=== PATIENT | female | born 1940 | race Caucasian/White ===

== ENCOUNTER 2018-04-24 23:22 | Emergency (ER) | payer OTHER ==
[2018-04-24 23:54] VITALS: BMI 25.4
--- NOTE | 2018-04-25 02:56 | PDOC ---
Attending Attestation - Resident Resident Name: Jose Cook - ED Attending Attestation I have performed the following: I have examined & evaluated the patient, The case was reviewed & discussed with the resident, I agree w/resident's findings & plan - HPI HPI: 04/25/18 06:48 78-year-old female sent from her assisted living facility with multiple episodes of diarrhea and lower abdominal cramping. There is no history of fever. - Physicial Exam PE: 04/25/18 06:48 Agree with resident's exam - Medical Decision Making 04/25/18 06:49 78-year-old female with multiple episodes of diarrhea Plan for CT scan of the abdomen and pelvis, changed to without contrast due to elevated creatinine IV fluids and reevaluation pending results Case to be signed out to the shift
--- NOTE | 2018-04-25 03:38 | PDOC ---
History of Present Illness - General Chief Complaint: Diarrhea Stated Complaint: DIARRHEA Time Seen by Provider: 04/25/18 02:55 History Source: Patient Exam Limitations: No Limitations - History of Present Illness Initial Comments: 04/25/18 06:42 78 yo F with a hx of schizophrenia, CAD, HLD, and GERD presents to the emergency department with 1 week of multiple . The patient currently lives at [facility] since 1992. Per the patient, she has had watery stool without hematochezia or melena. Per the patient, she has abdominal pain in the lower midline suprapubic region that is cramping in nature. She denies the following: fever, chills, SOB, chest pain, nausea, vomiting, visual changes, dysuria, hematuria, and leg pain/swelling. No recent use of antibiotics and denies recent sick contacts. Shx: None Allergies: NKDA Social: Endorses tobacco use. Denies alcohol and substance abuse Past History - Past Medical History Allergies/Adverse Reactions: Allergies Allergy/AdvReac Type Severity Reaction Status Date / Time No Known Allergies Allergy Verified 04/24/18 23:45 Home Medications: Ambulatory Orders Alendronate Sodium [Binosto] 70 mg PO WEEKLY 04/21/15 Aspirin [ASA -] 81 mg PO DAILY 04/21/15 Calcium 500 mg PO TID 04/21/15 Clopidogrel Bisulfate [Clopidogrel] 75 mg PO HS 04/21/15 Mirtazapine [Remeron -] 30 mg PO HS 04/21/15 Multivit with Calcium,Iron,Min [Tab A Ezra] 1 each PO DAILY 04/21/15 Potassium Citrate/Citric Acid [Pot Citrate-Citric Acid Packet] 1 each PO BID 06/01 Pravastatin Sodium 10 mg PO DAILY 04/21/15 Risperidone [Risperdal] 4 mg PO HS 04/21/15 Topiramate [Topamax] 400 mg PO HS 04/21/15 Ziprasidone [Geodon -] 60 mg PO BID 04/21/15 Zolpidem Tartrate 10 mg PO HS 04/21/15 traZODone HCL [Desyrel -] 50 mg PO HS 04/21/15 Acetaminophen [Mapap] 325 mg PO TID PRN #0 04/27/15 Cardiac Disorders: Yes (ASHD) GI Disorders: Yes (gerd) Hypercholesterolemia: Yes Psychiatric Problems: Yes (SCHIZOPHRENIA) - Suicide/Smoking/Psychosocial Hx Smoking History: Never smoked Have you smoked in the past 12 months: No Number of Cigarettes Smoked Daily: 0 If you are a former smoker, when did you quit?: 15 YEARS AGO Information on smoking cessation initiated: No Hx Alcohol Use: No Drug/Substance Use Hx: No Substance Use Type: None Hx Substance Use Treatment: No Review of Systems - Review of Systems Able to Perform ROS?: Yes Is the patient limited Macedonian proficient: No Constitutional: No: Chills, Diaphoresis, Fever, Weakness HEENTM: No: Blurred Vision, Recent change in vision, Ear Pain, Nose Pain, Throat Pain, Mouth Pain Respiratory: No: Cough, Shortness of Breath, SOB with Exertion, Hemoptysis Cardiac (ROS): No: Chest Pain, Lightheadedness, Palpitations, Syncope, Chest Tightness ABD/GI: Yes: Diarrhea. No: Constipated, Nausea, Rectal Bleeding, Vomiting, Tarry Stools : No: Burning, Dysuria, Frequency, Hematuria, Urgency Musculoskeletal: No: Back Pain, Joint Pain, Neck Pain Integumentary: No: Bruising, Erythema, Rash, Sweating Neurological: No: Headache, Numbness, Tingling, Tremors, Ataxia, Dizziness Psychiatric: No: Change in Appetite Endocrine: No: Unexplained Weight Gain Hematologic/Lymphatic: No: Anemia *Physical Exam - Vital Signs Last Vital Signs Temp Pulse Resp BP Pulse Ox 97.9 F 82 18 114/71 97 04/24/18 23:45 04/24/18 23:45 04/24/18 23:45 04/24/18 23:45 04/24/18 23:45 - Physical Exam General Appearance: Yes: Nourished, Appropriately Dressed. No: Apparent Distress, Intoxicated HEENT: positive: EOMI, ZHANE, Normal Voice, Symmetrical, Pharynx Normal, Hearing Grossly Normal. negative: Pale Conjunctivae, Scleral Icterus (R), Scleral Icterus (L), Muffled/Hoarse voice, Pharyngeal Erythema, Tonsillar Exudate, Tonsillar Erythema, Nasal Congestion, Rhinorrhea, Sinus Tenderness, Excessive drooling Neck: positive: Trachea midline, Supple. negative: Tender, Lymphadenopathy (R) , Lymphadenopathy (L), Tender lateral, Tender midline Respiratory/Chest: positive: Lungs Clear, Normal Breath Sounds. negative: Chest Tender, Respiratory Distress, Accessory Muscle Use, Crackles, Rales, Rhonchi, Stridor, Wheezing Cardiovascular: positive: Regular Rhythm, Regular Rate, S1, S2. negative: Systolic Murmur Gastrointestinal/Abdominal: positive: Normal Bowel Sounds, Tender (suprapubic region), Flat, Soft. negative: Rebound, Tenderness, Hernia Lymphatic: negative: Adenopathy Musculoskeletal: positive: Normal Inspection. negative: CVA Tenderness, Vertebral Tenderness Extremity: positive: Normal Capillary Refill, Normal Inspection, Normal Range of Motion. negative: Tender Integumentary: positive: Normal Color, Dry, Warm Neurologic: positive: sap basis administrator II-XII NML intact, Fully Oriented, Alert, Normal Mood/ Affect, Normal Response, Motor Strength 5/5. negative: EOM Palsy, Facial Droop , Sensory Deficit Moderate Sedation - Procedure Monitoring Vital Signs: Procedure Monitoring Vital Signs Temperature 97.9 F 04/24/18 23:45 Pulse Rate 82 04/24/18 23:45 Respiratory Rate 18 04/24/18 23:45 Blood Pressure 114/71 04/24/18 23:45 O2 Sat by Pulse Oximetry (%) 97 04/24/18 23:45 ED Treatment Course - LABORATORY CBC & Chemistry Diagram: 04/25/18 04:53 04/25/18 04:53 Medical Decision Making - Medical Decision Making 78 yo F with a hx of schizophrenia, CAD, HLD, and GERD presents to the emergency department with 1 week of diarrhea. Initial vitals: Initial Vital Signs Temp Pulse Resp BP Pulse Ox 97.9 F 82 18 114/71 97 04/24/18 23:45 04/24/18 23:45 04/24/18 23:45 04/24/18 23:45 04/24/18 23:45 Work up: ddx: viral gastroenteritis vs colitis vs diverticulosis vs diverticulitis Laboratory Tests 04/25/18 04/25/18 04:53 04:53 WBC 6.4 RBC 3.27 L Hgb 10.2 L Hct 29.9 L MCV 91.4 MCH 31.1 MCHC 34.0 RDW 14.6 Plt Count 157 MPV 11.5 H Absolute Neuts (auto) 2.8 Neutrophils % 42.8 D Lymphocytes % 36.2 D Monocytes % 10.2 Eosinophils % 10.0 H D Basophils % 0.8 Nucleated RBC % 0 Sodium 143 Potassium 4.0 Chloride 113 H Carbon Dioxide 23 Anion Gap 7 L BUN 36 H Creatinine 1.6 H Creat Clearance w eGFR 31.26 Random Glucose 88 Calcium 8.6 Total Bilirubin 0.3 AST 11 L ALT 12 L Alkaline Phosphatase 55 Total Protein 6.0 L Albumin 3.0 L Patient's BUN and creatinine is elevated likely secondary to dehydration secondary to profuse diarrhea. Patient will get a CT abdomen and pelvis without contrast due to rise in creatinine and BUN. patient received 1 L of NS. Did not want anything for pain relief. Patient was signed out to Dr. Puentes *DC/Admit/Observation/Transfer - Referrals Referrals: Elisabet Jones [Primary Care Provider] - - Patient Instructions - Post Discharge Activity
[2018-04-25 05:10] LABS: BASO % 0.8 % (0-2.0); HEMATOCRIT 29.9 % (32.4-45.2); HEMOGLOBIN 10.2 GM/dL (10.7-15.3); LYMPH % 36.2 % (8-40); MCH 31.1 pg (25.7-33.7); MEAN CELL VOLUME 91.4 fl (80-96); MEAN PLT VOLUME 11.5 fl (7.5-11.1); MONO % 10.2 % (3.8-10.2); NEUT % 42.8 % (42.8-82.8); PLATELET COUNT 157 K/MM3 (134-434); RBC 3.27 M/mm3 (3.60-5.2); RDW 14.6 % (11.6-15.6); WHITE BLOOD COUNT 6.4 K/mm3 (4.0-10.0)
[2018-04-25 06:19] LABS: ALK PHOS 55 U/L (45-117); ANION GAP 7 MMOL/L (8-16); BILIRUBIN,TOTAL 0.3 mg/dL (0.2-1); BLOOD UREA NITROGEN 36 mg/dL (7-18); CALCIUM 8.6 mg/dL (8.5-10.1); CHLORIDE 113 mmol/L (98-107); CO2 23 mmol/L (21-32); CREATININE 1.6 mg/dL (0.55-1.3); GLUCOSE,RANDOM 88 mg/dL (74-106); SGOT/AST 11 U/L (15-37); SGPT/ALT 12 U/L (13-61); SODIUM 143 mmol/L (136-145)
[2018-04-25] MEDS ORDERED: SODIUM CHLORIDE 1,000 ML IV STA (06:23)
--- NOTE | 2018-04-25 08:57 | PDOC ---
*Physical Exam - Vital Signs Last Vital Signs Temp Pulse Resp BP Pulse Ox 97.9 F 76 15 122/87 98 04/24/18 23:45 04/25/18 06:40 04/25/18 06:40 04/25/18 06:40 04/25/18 06:40 ED Treatment Course - LABORATORY CBC & Chemistry Diagram: 04/25/18 04:53 04/25/18 04:53 - ADDITIONAL ORDERS Additional order review: Laboratory Results 04/25/18 04/25/18 08:15 04:53 Sodium 143 Potassium 4.0 Chloride 113 H Carbon Dioxide 23 Anion Gap 7 L BUN 36 H Creatinine 1.6 H Creat Clearance w eGFR 31.26 Random Glucose 88 Lactic Acid 0.5 Calcium 8.6 Total Bilirubin 0.3 AST 11 L ALT 12 L Alkaline Phosphatase 55 Total Protein 6.0 L Albumin 3.0 L 04/25/18 04:53 RBC 3.27 L MCV 91.4 MCHC 34.0 RDW 14.6 MPV 11.5 H Neutrophils % 42.8 D Lymphocytes % 36.2 D Monocytes % 10.2 Eosinophils % 10.0 H D Basophils % 0.8 - Medications Given in the ED: ED Medications Discontinued Medications Generic Name Dose Route Start Last Admin Trade Name Freq PRN Reason Stop Dose Admin Sodium Chloride 1,000 mls @ 1,000 mls/hr 04/25/18 06:23 04/25/18 06:45 Normal Saline - IV 04/25/18 07:22 1,000 mls/hr ASDIR STA Administration Medical Decision Making - Medical Decision Making 04/25/18 08:[address] Cook. Ms. Garcia is a 78 yo female w/ pmh of scizophrenia, CAD, HLD, GERD who presents for evaluation of 1 week of diarrhea ( watery stool w/out hematochezia or melena). Patient is a [employer] patient. Currently pending CT abdomen/pelvis for further evaluation. 04/25/18 09:37 CT significant for anterior pericardial effusion, hepatic cyst and cholelithiasis, bilateral renal cysts, and mild sigmoid diverticulosis. No concern for acute process at this time. 04/25/18 10:31 Discussed patient with nursing munitions handler supervisor Garrett Maurer - explained patient requires PO hydration only at this time and went over negative CT findings. Patient ok for return at this time. Laboratory Results - last 24 hr 04/25/18 04/25/18 04/25/18 04:53 04:53 08:15 WBC 6.4 RBC 3.27 L Hgb 10.2 L Hct 29.9 L MCV 91.4 MCH 31.1 MCHC 34.0 RDW 14.6 Plt Count 157 MPV 11.5 H Absolute Neuts (auto) 2.8 Neutrophils % 42.8 D Lymphocytes % 36.2 D Monocytes % 10.2 Eosinophils % 10.0 H D Basophils % 0.8 Nucleated RBC % 0 Sodium 143 Potassium 4.0 Chloride 113 H Carbon Dioxide 23 Anion Gap 7 L BUN 36 H Creatinine 1.6 H Creat Clearance w eGFR 31.26 Random Glucose 88 Lactic Acid 0.5 Calcium 8.6 Total Bilirubin 0.3 AST 11 L ALT 12 L Alkaline Phosphatase 55 Total Protein 6.0 L Albumin 3.0 L *DC/Admit/Observation/Transfer Diagnosis at time of Disposition: Dehydration Diarrhea Qualifiers: Diarrhea type: unspecified type Qualified Code(s): R19.7 - Diarrhea, unspecified - Discharge Dispostion Disposition: HOME - Referrals Referrals: Elisabet Jones [Primary Care Provider] - - Patient Instructions Printed Discharge Instructions: DI for Diarrhea and Traveler's Diarrhea -- Adult Additional Instructions: Sabi was evaluated today in the ER for her diarrhea. We performed laboratory evaluation as well as CT scan with no concerning findings. She was mildly dehydrated and we rehydrated her with IV fluids. Continue to encourage PO intake for further hydration. Follow-up with primary care provider in 2-3 days for repeat evaluation and laboratory evaluation. Return to ER if any change in mental status, fever, chills, or other concerning symptoms. - Post Discharge Activity
[2018-04-25 10:15] VITALS: TEMP 98.1
[2018-04-25 13:40] VITALS: BP 97/60; PULSE 64
== END 2018-04-25 13:40 | disposition home or self-care (01) ==
LOC: JER 23:22
PROC: 3E0337Z Introduction of Electrolytic and Water Balance Substance into Peripheral Vein, Percutaneous Approach (ICD-10-PCS; principal; 2018-04-24)
DX: E86.0 Dehydration (principal); I25.10 Atherosclerotic heart disease of native coronary artery without angina pectoris; E78.5 Hyperlipidemia, unspecified; K21.9 Gastro-esophageal reflux disease without esophagitis; F20.9 Schizophrenia, unspecified; R94.4 Abnormal results of kidney function studies
CPT/HCPCS: 36415; 74176-TC; 80053; 83605; 85025; 99282-25; J7030

== ENCOUNTER 2018-06-08 13:43 | Emergency (ER) | payer OTHER ==
[2018-06-08 13:48] VITALS: BP 101/58; PULSE 73; TEMP 98.6; BMI 28.3
--- NOTE | 2018-06-08 14:20 | PDOC ---
History of Present Illness - General Chief Complaint: Edema Stated Complaint: RT EYE INFECTION Time Seen by Provider: 06/08/18 14:16 - History of Present Illness Initial Comments: 06/08/18 14:19 78-year-old female presents for evaluation of left eye swelling. She states she woke up with her left thigh swollen this morning there is no discharge no pain no changes in vision completely asymptomatic. She states her eye does not feel swollen at this time. Past History - Past Medical History Allergies/Adverse Reactions: Allergies Allergy/AdvReac Type Severity Reaction Status Date / Time No Known Allergies Allergy Verified 06/08/18 13:46 Home Medications: Ambulatory Orders Alendronate Sodium [Binosto] 70 mg PO WEEKLY 04/21/15 Aspirin [ASA -] 81 mg PO DAILY 04/21/15 Calcium 500 mg PO TID 04/21/15 Clopidogrel Bisulfate [Clopidogrel] 75 mg PO HS 04/21/15 Mirtazapine [Remeron -] 30 mg PO HS 04/21/15 Multivit with Calcium,Iron,Min [Tab A Ezra] 1 each PO DAILY 04/21/15 Potassium Citrate/Citric Acid [Pot Citrate-Citric Acid Packet] 1 each PO BID 06/01 Pravastatin Sodium 10 mg PO DAILY 04/21/15 Risperidone [Risperdal] 4 mg PO HS 04/21/15 Topiramate [Topamax] 400 mg PO HS 04/21/15 Ziprasidone [Geodon -] 60 mg PO BID 04/21/15 Zolpidem Tartrate 10 mg PO HS 04/21/15 traZODone HCL [Desyrel -] 50 mg PO HS 04/21/15 Acetaminophen [Mapap] 325 mg PO TID PRN #0 04/27/15 Anemia: No Asthma: No Cancer: No Cardiac Disorders: Yes (ASHD) CVA: No COPD: No CHF: No DVT: No Dementia: No Diabetes: No GI Disorders: Yes (gerd) HTN: No Hypercholesterolemia: Yes Kidney Stones: Yes Liver Disease: No Psychiatric Problems: Yes (SCHIZOPHRENIA) Seizures: No Thyroid Disease: No Lung CA: No - Surgical History Abdominal Surgery: No - Immunization History Immunization Up to Date: Yes - Suicide/Smoking/Psychosocial Hx Smoking History: Never smoked Have you smoked in the past 12 months: No Number of Cigarettes Smoked Daily: 0 If you are a former smoker, when did you quit?: 15 YEARS AGO Hx Alcohol Use: No Drug/Substance Use Hx: No Substance Use Type: None Hx Substance Use Treatment: No Review of Systems - Review of Systems HEENTM: Yes: See HPI *Physical Exam - Vital Signs Last Vital Signs Temp Pulse Resp BP Pulse Ox 98.6 F 73 16 101/58 L 98 06/08/18 13:46 06/08/18 13:46 06/08/18 13:46 06/08/18 13:46 06/08/18 13:46 - Physical Exam Comments: 06/08/18 14:19 HEAD: NC/AT EYES: Conjuntiva clear EOMI MS: Full ROM in all joints without edema NEUROLOGIC: No gross sensory or motor deficits, NVID SKIN: Normal color and temperature no lesions or rashes Moderate Sedation - Procedure Monitoring Vital Signs: Procedure Monitoring Vital Signs Temperature 98.6 F 06/08/18 13:46 Pulse Rate 73 06/08/18 13:46 Respiratory Rate 16 06/08/18 13:46 Blood Pressure 101/58 L 06/08/18 13:46 O2 Sat by Pulse Oximetry (%) 98 06/08/18 13:46 Medical Decision Making - Medical Decision Making 06/08/18 14:19 Completely benign examination and asymptomatic patient I will refer her to ophthalmology for further evaluation *DC/Admit/Observation/Transfer Diagnosis at time of Disposition: Eye swelling, left - Discharge Dispostion Disposition: HOME Condition at time of disposition: Stable Decision to Admit order: No - Referrals Referrals: Lion Conroy MD [Non Staff, Medical] - Dawson Bailey [Non Staff, Medical] - Mumtaz Hernández MD [Non Staff, Medical] - Mira Carballo DO [Non Staff, Medical] - David Mcdowell MD [Staff Physician] - Malika Mcneal MD [Staff Physician] - Christiano Montoya MD, MD [Non Staff, Medical] - Tha De La Torre MD [Non Staff, Medical] - Danielle Veloz MD [Non Staff, Medical] - - Patient Instructions Additional Instructions: Return to the emergency room for worsening symptoms otherwise follow-up with ophthalmology in one to 2 days for further evaluation and treatment options. - Post Discharge Activity
== END 2018-06-08 14:39 | disposition home or self-care (01) ==
LOC: JERFT 13:43
DX: H57.89 Other specified disorders of eye and adnexa (principal); F20.9 Schizophrenia, unspecified; E78.00 Pure hypercholesterolemia, unspecified; K21.9 Gastro-esophageal reflux disease without esophagitis; I25.10 Atherosclerotic heart disease of native coronary artery without angina pectoris
CPT/HCPCS: 99281-25

== ENCOUNTER 2019-01-19 23:02 | Emergency (ER) | payer OTHER ==
[2019-01-19 23:07] VITALS: TEMP 98; BMI 34.3
--- NOTE | 2019-01-19 23:11 | PDOC ---
History of Present Illness - General Chief Complaint: Injury Stated Complaint: FALL Time Seen by Provider: 01/19/19 23:09 - History of Present Illness Initial Comments: 01/19/19 23:37 78 y/o F hx of schizophrenia, HLD, CAD, GERD presents to the ER from [facility] after falling from a chair to the floor. She reports falling twice, once to her knees and the other time on her buttocks. Brought in by ems. There was no further paperwork or report of event sent along with her. She denies being in any pain, hitting her had, loss of consciousness. She reports taking tylenol for persistent pain in her right leg which precedes her fall today. Past History - Past Medical History Allergies/Adverse Reactions: Allergies Allergy/AdvReac Type Severity Reaction Status Date / Time No Known Allergies Allergy Verified 01/19/19 23:05 Home Medications: Ambulatory Orders Alendronate Sodium [Binosto] 70 mg PO WEEKLY 04/21/15 Aspirin [ASA -] 81 mg PO DAILY 04/21/15 Calcium 500 mg PO TID 04/21/15 Clopidogrel Bisulfate [Clopidogrel] 75 mg PO HS 04/21/15 Mirtazapine [Remeron -] 30 mg PO HS 04/21/15 Multivit with Calcium,Iron,Min [Tab A Ezra] 1 each PO DAILY 04/21/15 Potassium Citrate/Citric Acid [Pot Citrate-Citric Acid Packet] 1 each PO BID 06/01 Pravastatin Sodium 10 mg PO DAILY 04/21/15 Risperidone [Risperdal] 4 mg PO HS 04/21/15 Topiramate [Topamax] 400 mg PO HS 04/21/15 Ziprasidone [Geodon -] 60 mg PO BID 04/21/15 Zolpidem Tartrate 10 mg PO HS 04/21/15 traZODone HCL [Desyrel -] 50 mg PO HS 04/21/15 Acetaminophen [Mapap] 325 mg PO TID PRN #0 04/27/15 Anemia: No Asthma: No Cancer: No Cardiac Disorders: Yes (ASHD) CVA: No COPD: No CHF: No DVT: No Dementia: No Diabetes: No GI Disorders: Yes (gerd) HTN: No Hypercholesterolemia: Yes Kidney Stones: Yes Liver Disease: No Psychiatric Problems: Yes (SCHIZOPHRENIA) Seizures: No Thyroid Disease: No Lung CA: No - Surgical History Abdominal Surgery: No - Immunization History Immunization Up to Date: Yes - Psycho Social/Smoking Cessation Hx Smoking History: Current every day smoker Have you smoked in the past 12 months: No Number of Cigarettes Smoked Daily: 0 If you are a former smoker, when did you quit?: 15 YEARS AGO Information on smoking cessation initiated: No Hx Alcohol Use: No Drug/Substance Use Hx: No Substance Use Type: None Hx Substance Use Treatment: No *Physical Exam - Vital Signs Last Vital Signs Temp Pulse Resp BP Pulse Ox 98.0 F 77 18 102/57 L 98 01/19/19 23:06 01/19/19 23:06 01/19/19 23:06 01/19/19 23:06 01/19/19 23:06 - Physical Exam Comments: 01/19/19 23:43 GENERAL: Sleeping but arousable in no acute distress HEAD: No signs of trauma, normocephalic, atraumatic EYES: EOMI, sclera anicteric, conjunctiva clear ENT: Auricles normal inspection, hearing grossly normal, nares patent, oropharynx clear without exudates. NECK: Normal ROM, supple, , JVD, or masses LUNGS: No distress, speaks full sentences, clear to auscultation bilaterally HEART: Regular rate and rhythm, normal S1 and S2, no murmurs, rubs or gallops, peripheral pulses normal and equal bilaterally. ABDOMEN: Soft, nontender, normoactive bowel sounds. No guarding, no rebound. No masses EXTREMITIES : Normal inspection, Normal range of motion, tederness to palpation of right anterior thigh. NEUROLOGICAL: Cranial nerves II through XII grossly intact. Normal speech, normal gait, no focal sensorimotor deficits SKIN: Warm, Dry, normal turgor, no rashes or lesions noted 01/19/19 23:51 Medical Decision Making - Medical Decision Making 01/19/19 23:53 78 y/o F hx of schizophrenia, HLD, CAD, GERD presents to the ER from [facility] after falling from a chair to the floor. -Unable to get more inforamtion from [facility]. Person on the phone not aware of patients condition head ct w/o contrast to rule out bleed hip and pelvis x-ray 01/20/19 00:48 No acute fractures seen on hip and pelvis x-rays. Head CT No acute intracranial hemorrhage mass effect or midline shift. The ventricles sulci and basilar cisterns have a normal size and contour. Mild nonspecific periventricular predominant low density throughout the deep white matter is most likely due to mild small vessel ischemic white matter disease. The sinuses and mastoid air cells are clear within the [id number]. The calvarium is intact. IMPRESSION No acute intracranial hemorrhage mass effect or midline shift. Mild nonspecific periventricular predominant low density throughout the deep white matter is most likely due to mild small vessel ischemic white matter disease. 01/20/19 01:16 Pt will be discharged back to [facility]. Discharge - Discharge Information Problems reviewed: Yes Clinical Impression/Diagnosis: Fall Qualifiers: Encounter type: initial encounter Qualified Code(s): W19.XXXA - Unspecified fall, initial encounter Condition: Stable Disposition: HOME - Admission No - Follow up/Referral - Patient Discharge Instructions Patient Printed Discharge Instructions: How to Prevent Falls Additional Instructions: You were seen in the ER after a fall. An x-ray and CT scan was done. you have no fracture or bleeding in your skull. RETURN TO THE ER -If you develop nausea, vomiting, headache, blurry vision -if you develop fevers or chlls -worsening pain. - Post Discharge Activity
--- NOTE | 2019-01-19 23:39 | PDOC ---
Attending Attestation - Resident Resident Name: Aretha Mireles - ED Attending Attestation I have performed the following: I have examined & evaluated the patient, The case was reviewed & discussed with the resident, I agree w/resident's findings & plan, Exceptions are as noted - HPI HPI: 01/19/19 23:38 78-year-old female brought in by ambulance from [facility] after a witnessed fall HPI according to emergency medical services the patient had a witnessed fall from a chair onto her buttocks. Her aide was concerned because she had fallen and had the patient transported to the hospital - Physicial Exam PE: 01/19/19 23:39 wnwd 78 yo female states she fell tonight head no hematomas, no scalp lacerations noted Face no hematomas neck no cervical midline tenderness lungs cta b/l cvs [id number] abd nontedner Extremities pt has no deformities and can raise her arms and legs , no hip pain but states she does have intermittent rt femur pain neuro pt is conversant and alert, moving her extremities 01/20/19 00:04 - Medical Decision Making 01/20/19 00:05 We called [facility] to get information about her medications EMS stated that she had a witnessed fall pt is not on coumadin but does take plavix 75mg 01/20/19 00:42 plain radiographs of rt hip and femur are negative 01/20/19 01:23 ct scan of head : no acute intracranial pathology pt d/c back to [facility]
[2019-01-20 01:49] VITALS: BP 108/63; PULSE 72
== END 2019-01-20 01:46 | disposition home or self-care (01) ==
LOC: JER 23:02
DX: Z04.3 Encounter for examination and observation following other accident (principal); W07.XXXA Fall from chair, initial encounter; Y93.89 Activity, other specified; Y92.098 Other place in other non-institutional residence as the place of occurrence of the external cause; Y99.8 Other external cause status; I25.10 Atherosclerotic heart disease of native coronary artery without angina pectoris; K21.9 Gastro-esophageal reflux disease without esophagitis; E78.5 Hyperlipidemia, unspecified; F20.9 Schizophrenia, unspecified; F17.210 Nicotine dependence, cigarettes, uncomplicated; Z87.442 Personal history of urinary calculi
CPT/HCPCS: 70450-TC; 72170-TC-FY; 73552-TC-RT-FY; 99282-25

== ENCOUNTER 2019-04-18 21:53 | Inpatient (IN) | payer OTHER ==
--- NOTE | 2019-04-18 22:50 | PDOC ---
Attending Attestation - Resident Resident Name: Giuliana Burciaga - ED Attending Attestation I have performed the following: I have examined & evaluated the patient, The case was reviewed & discussed with the resident, I agree w/resident's findings & plan - HPI HPI: 04/18/19 23:02 Pt comes with low BP and a "cold" from the NH; Pt smells of nicotene and tells us that she is a smoker. She says that she needs to urinate. She doesn't answer all our quesitons. Eyes are closed. Pt's O2sat on RA is 98% BP is 89 systolic Pt is afebrile. - Physicial Exam PE: 04/18/19 23:04 Afebrile Heart [id number] lungs CTAB abd soft NTND +BS flank: No edema - Medical Decision Making 04/18/19 23:56 Pt had a large BM here. We are awaiting labs. Pt is getting hydration. 04/19/19 00:46 Lactic acid 1.0; CXR same as old; clear; cardiomegaly Pt has hematuria. UA pending; likely UTI 04/19/19 01:19 Pt's BUN/Cr elevated; we will check for obstructing stone. 04/19/19 01:20 +Leukocytes in the urine and she will be treated with rocephin. 04/19/19 05:18 Patient Name: LURDES FINNEGAN THIS IS A PRELIMINARY REPORT FROM [facility] DATE OF SERVICE: 2019-04-19 03:24:24 IMAGES: [id number] EXAM: HEAD CT WITHOUT CONTRAST HISTORY: Trauma COMPARISON: None. FINDINGS: The ventricular system is midline and nondilated. The sulcal pattern is normal for the patient's age. Minimal small vessel ischemic changes are noted. There is no bleed, mass, extra-axial fluid collection or mass effect. No skull fracture or skull lesion is identified. The mastoid air cells are clear. Multifocal sinus mucosal thickening and air-fluid levels is consistent with sinusitis. IMPRESSION: No acute traumatic pathology. Sinusitis 04/19/19 05:27 Pt appears to have renal cysts and cystitis/bladder wall thickening. If CT abd/pelvis is otherwise normal, she can retiurn to the [facility] with oral abx. We are awaiting offical radiology read 04/19/19 05:49 Patient Name: LURDES FINNEGAN THIS IS A PRELIMINARY REPORT FROM [facility] DATE OF SERVICE: 2019-04-19 03:28:03 IMAGES: [id number] EXAM: CT abdomen and pelvis without contrast HISTORY: Hematuria COMPARISON: None. FINDINGS: Right middle lobe consolidation may represent pneumonia. There is mild bilateral lower lobe dependent atelectasis. There is a small pericardial effusion. The visualized cardiac chambers are normal size and configuration. Tiny gallstones are noted without gallbladder inflammation or biliary duct dilation. Left hepatic lobe hypodensity may be a cyst. There are bilateral renal cysts, including a partially rim calcified left renal cyst but no stones or hydronephrosis. Normal unenhanced pancreas, spleen, adrenal glands . The stomach and abdominal small and large bowel are normal. There is no aortic aneurysm. There is no significant retroperitoneal lymphadenopathy. The pelvic small and large bowel are normal. There is no evidence of appendicitis. The uterus and adnexal structures are normal. Urinary bladder is significantly inflamed, consistent with cystitis. There is surrounding mesenteric presacral edema.. There is a small amount of pelvic free fluid. No discrete pelvic lymphadenopathy is identified. IMPRESSION: Significant cystitis with surrounding mesenteric edema and presacral edema. Possible right middle lobe pneumonia. Small pericardial effusion. Tiny gallstones. No renal stones or hydronephrosis 04/19/19 05:50 Pt will be admitted for IV abx and when she is stable, she can return to the [facility] Heart Score/ECG Review - ECG Intrepretation Rhythm: Regular Rhythm - P and MA Prolonged MA Interval: 1st Degree Block(>20mils) Prominent R with upright T in V1 (true posterior IA): No Delta Wave(s) Present: No WPW: No - QRS Poor R Wave Progression: No Q Wave Present: No - ST and T Early Repolarization: No Non Specific ST-T Wave changes: No - ECG Impressions Normal ECG: Yes Non-specific ST Elevation: No Ischemic Changes: No Bradycardia: No Torsades priya Pointes: No
--- NOTE | 2019-04-18 23:03 | PDOC ---
History of Present Illness - General Chief Complaint: Cold Symptoms Stated Complaint: ALTERED MENTAL STATUS Time Seen by Provider: 04/18/19 22:39 - History of Present Illness Initial Comments: Sabi Garcia is a 79yo woman with a PMH of schizophrenia, HLD, CAD, GERD who presents from her SNF with report of AMS and flu-like symptoms. Ms Garcia declines to answer any questions, and no one from the SNF was available for additional information. Past History - Past Medical History Allergies/Adverse Reactions: Allergies Allergy/AdvReac Type Severity Reaction Status Date / Time No Known Allergies Allergy Verified 04/18/19 22:56 Home Medications: Ambulatory Orders Alendronate Sodium [Binosto] 70 mg PO WEEKLY 04/21/15 Aspirin [ASA -] 81 mg PO DAILY 04/21/15 Calcium 500 mg PO TID 04/21/15 Clopidogrel Bisulfate [Clopidogrel] 75 mg PO HS 04/21/15 Mirtazapine [Remeron -] 30 mg PO HS 04/21/15 Multivit with Calcium,Iron,Min [Tab A Ezra] 1 each PO DAILY 04/21/15 Potassium Citrate/Citric Acid [Pot Citrate-Citric Acid Packet] 1 each PO BID 06/01 Pravastatin Sodium 10 mg PO DAILY 04/21/15 Risperidone [Risperdal] 4 mg PO HS 04/21/15 Topiramate [Topamax] 400 mg PO HS 04/21/15 Ziprasidone [Geodon -] 60 mg PO BID 04/21/15 Zolpidem Tartrate 10 mg PO HS 04/21/15 traZODone HCL [Desyrel -] 50 mg PO HS 04/21/15 Acetaminophen [Mapap] 325 mg PO TID PRN #0 04/27/15 Anemia: No Asthma: No Cancer: No Cardiac Disorders: Yes (ASHD) CVA: No COPD: No CHF: No DVT: No Dementia: No Diabetes: No GI Disorders: Yes (gerd) HTN: No Hypercholesterolemia: Yes Kidney Stones: Yes Liver Disease: No Psychiatric Problems: Yes (SCHIZOPHRENIA) Seizures: No Thyroid Disease: No Lung CA: No - Surgical History Abdominal Surgery: No - Immunization History Immunization Up to Date: Yes - Psycho Social/Smoking Cessation Hx Smoking History: Current every day smoker Have you smoked in the past 12 months: No Number of Cigarettes Smoked Daily: 0 If you are a former smoker, when did you quit?: 15 YEARS AGO Hx Alcohol Use: No Drug/Substance Use Hx: No Substance Use Type: None Hx Substance Use Treatment: No Review of Systems - Review of Systems Comments:: Could not obtain, pt not answering questions *Physical Exam - Physical Exam General: In no acute distress HEENT: Atraumatic. Crusting over right eyelashes, PERRL, EOMI, No posterior neck tenderness Cards: RRR, no murmur appreciated Pulm: Comfortable on room air, clear to auscultation bilaterally Abd: Soft, nontender, nondistended Ext: Atraumatic. No LE edema. WWP Skin: Normal color, no rashes or lesions Neuro: Awake, does not answer questions or follow commands, CN grossly intact ED Treatment Course - LABORATORY CBC & Chemistry Diagram: 04/18/19 23:30 04/18/19 23:30 Medical Decision Making - Medical Decision Making 04/18/19 23:30 Sabi Garcia is a 79yo woman with a PMH of schizophrenia, HLD, CAD, GERD who presents from her SNF with report of AMS and flu-like symptoms. Ms Garcia declines to answer any questions, and no one from the SNF was available for additional information. - Pt not speaking or answering questions. Likely altered - Blood pressure low at 90/60's. - Coarse breath sounds in right lung - Concerning for possible infectious process. No known h/o fall or trauma, no sign of injury on exam - Sepsis workup ordered 04/19/19 01:03 - Workup pending. Labs so far notable for slight leukocytosis to 11. Lactate normal - Signed out to Dr Restrepo for the remainder of her ED care Discussed with Dr Fredrick Burciaga PGY2 Discharge - Discharge Information Problems reviewed: Yes Clinical Impression/Diagnosis: AMS (altered mental status) - Follow up/Referral Referrals: Charanjit Willingham [Primary Care Provider] - - Patient Discharge Instructions - Post Discharge Activity
[2019-04-18] MEDS ORDERED: SODIUM CHLORIDE 1,973 ML IV ONE (23:29)
[2019-04-19] VITALS: BMI 24.9
[2019-04-19 00:12] LABS: BASO % 0.2 % (0-2.0); EOS % 2.8 % (0-4.5); HEMATOCRIT 32.4 % (32.4-45.2); HEMOGLOBIN 10.4 GM/dL (10.7-15.3); LYMPH % 16.8 % (8-40); MCH 29.5 pg (25.7-33.7); MCHC 32.3 g/dl (32.0-36.0); MEAN CELL VOLUME 91.4 fl (80-96); MEAN PLT VOLUME 11.7 fl (7.5-11.1); NEUT % 73.2 % (42.8-82.8); PLATELET COUNT 197 K/MM3 (134-434); RBC 3.54 M/mm3 (3.60-5.2); RDW 14.2 % (11.6-15.6); WHITE BLOOD COUNT 11.7 K/mm3 (4.0-10.0)
[2019-04-19 00:25] LABS: INR 1.07 (0.83-1.09); PROTHROMBIN TIME (PATIENT) 12.6 SEC (9.7-13.0)
[2019-04-19 00:28] LABS: ACTIVATED PTT 28.8 SECONDS (25.2-36.5)
[2019-04-19 00:39] LABS: VENOUS PC02 44.3 mmHg (38-52); VENOUS PH 7.35 (7.31-7.41); VENOUS PO2 72.8 mmHg (28-48)
[2019-04-19 00:59] LABS: ALBUMIN 2.9 g/dl (3.4-5.0); BILIRUBIN,TOTAL 0.2 mg/dL (0.2-1); BLOOD UREA NITROGEN 38.6 mg/dL (7-18); CALCIUM 8.9 mg/dL (8.5-10.1); CHLORIDE 111 mmol/L (98-107); CO2 25 mmol/L (21-32); CREATININE 1.5 mg/dL (0.55-1.3); GLUCOSE,RANDOM 113 mg/dL (74-106); SGPT/ALT 13 U/L (13-61); SODIUM 142 mmol/L (136-145); TOT PROT 6.5 g/dl (6.4-8.2)
[2019-04-19 01:07] LABS: EPI CELLS 8.1 /HPF (0-5/HPF); HYALINE CASTS 10 /lpf (0-8); PH,URINE 7.5 (5.0-8.0); URINE APPEARANCE CLOUDY; URINE BACTERIA 10.7 /hpf (NEGATIVE); URINE BILIRUBIN NEGATIVE (NEGATIVE); URINE COLOR RED; URINE GLUCOSE (UA) TRACE (NEGATIVE); URINE KETONE NEGATIVE (NEGATIVE); URINE LEUK ESTERASE 1+ (NEGATIVE); URINE NITRITE NEGATIVE (NEGATIVE); URINE PROTEIN 4+ (NEGATIVE); URINE RBC 2136 /hpf (0-4); URINE UROBILINOGEN 0.2 mg/dL (0.2-1.0); URINE WBC 47 /hpf (0-5)
--- NOTE | 2019-04-19 01:16 | PDOC ---
*Physical Exam - Vital Signs Last Vital Signs Temp Pulse Resp BP Pulse Ox 98.5 F 74 18 91/65 100 04/18/19 22:34 04/18/19 22:34 04/18/19 22:34 04/18/19 23:25 04/18/19 23:56 - Physical Exam General Appearance: Yes: Nourished, Appropriately Dressed, Obese. No: Apparent Distress HEENT: positive: EOMI, ZHANE, Normal Voice, Symmetrical, Pharynx Normal. negative: Scleral Icterus (R), Scleral Icterus (L) Neck: positive: Trachea midline, Normal Thyroid, Supple. negative: Tender, Lymphadenopathy (R), Lymphadenopathy (L) Respiratory/Chest: positive: Lungs Clear, Normal Breath Sounds. negative: Chest Tender, Respiratory Distress, Accessory Muscle Use, Crackles, Rales, Rhonchi, Stridor, Wheezing, Hyperresonant Cardiovascular: positive: Regular Rhythm, Regular Rate. negative: Murmur Gastrointestinal/Abdominal: positive: Normal Bowel Sounds, Flat, Soft. negative : Tender, Guarding, Rebound Musculoskeletal: positive: Normal Inspection. negative: CVA Tenderness Integumentary: positive: Normal Color, Dry, Warm Neurologic: positive: Alert, Normal Mood/Affect, Normal Response ED Treatment Course - LABORATORY CBC & Chemistry Diagram: 04/18/19 23:30 04/18/19 23:30 - ADDITIONAL ORDERS Additional order review: Laboratory Results 04/19/19 04/18/19 04/18/19 00:40 23:30 23:30 PT with INR INR PTT (Actin FS) VBG pH 7.35 POC VBG pCO2 44.3 POC VBG pO2 72.8 H VBG HCO3 23.6 VBG O2 Sat (Roland) 94.2 H VBG Base Excess -1.5 Sodium Chloride Carbon Dioxide BUN Creatinine Est GFR (CKD-EPI)AfAm Est GFR (CKD-EPI)NonAf Random Glucose Lactic Acid 1.0 Calcium Total Bilirubin ALT Troponin I Total Protein Albumin Urine Color Red Urine Appearance Cloudy Urine pH 7.5 Ur Specific [place] 1.020 Urine Protein 4+ H Urine Glucose (UA) Trace Urine Ketones Negative Urine Blood 3+ H Urine Nitrite Negative Urine Bilirubin Negative Urine Urobilinogen 0.2 Ur Leukocyte Esterase 1+ H Urine WBC (Auto) 47 Urine RBC (Auto) 2136 Urine Casts (Auto) 10 U Epithel Cells (Auto) 8.1 Urine Bacteria (Auto) 10.7 04/18/19 04/18/19 23:30 23:30 PT with INR 12.60 INR 1.07 PTT (Actin FS) 28.8 VBG pH POC VBG pCO2 POC VBG pO2 VBG HCO3 VBG O2 Sat (Roland) VBG Base Excess Sodium 142 Chloride 111 H Carbon Dioxide 25 BUN 38.6 H Creatinine 1.5 H Est GFR (CKD-EPI)AfAm 38.28 Est GFR (CKD-EPI)NonAf 33.02 Random Glucose 113 H Lactic Acid Calcium 8.9 Total Bilirubin 0.2 ALT 13 Troponin I < 0.02 Total Protein 6.5 Albumin 2.9 L Urine Color Urine Appearance Urine pH Ur Specific [place] Urine Protein Urine Glucose (UA) Urine Ketones Urine Blood Urine Nitrite Urine Bilirubin Urine Urobilinogen Ur Leukocyte Esterase Urine WBC (Auto) Urine RBC (Auto) Urine Casts (Auto) U Epithel Cells (Auto) Urine Bacteria (Auto) 04/18/19 23:30 RBC 3.54 L MCV 91.4 MCHC 32.3 RDW 14.2 MPV 11.7 H Neutrophils % 73.2 D Lymphocytes % 16.8 D Monocytes % 7.0 Eosinophils % 2.8 Basophils % 0.2 Medical Decision Making - Medical Decision Making 04/19/19 01:15 Signed out to me by Dr. Burciaga. [facility], HTN, sent from [place] for AMS, flu-like sx. Sepsis work-up initiated. Patient not talking to ED providers, unclear if refusing to speak or very altered. No CT head done. [] labs [] UA [] dispo 04/19/19 01:23 Labs notable for: - WBC 11.7 - VBG WNL - Cr 1.5 at baseline - trop 0.02 - UA 4+ protein, 3+ blood, 1+ LE, low bacteria, consistent with UTI vs. stone CT spiral and 1g Rocephin ordered for UTI and blood in UA. 04/19/19 05:24 Discussed with sons at bedside, patient is acting at baseline mental status at this time, possibly a bit more agitated and confused. Patient concerned about kidney tests and CT scan results, discussed with patient but she has limited recall of what was discussed. Labs only remarkable for UTI with hemorrhage, no significant WBC elevation. If CT negative, can be discharged home with Keflex and f/u. 04/19/19 05:55 CTAP: Significant cystitis with surrounding mesenteric edema and presacral edema. Possible right middle lobe pneumonia. Small pericardial effusion. Tiny gallstones. No renal stones or hydronephrosis. CTH: no acute pathology CTAP suggests UTI and PNA. Already given Rocephin for UTI, adding on azithromycin for CAP. Will admit for AMS in the setting of PNA and UTI. 04/19/19 06:45 No callback from hospitalist team yet, will need AM team admit. Signed out to day team, plan to admit. Discharge - Discharge Information Problems reviewed: Yes Clinical Impression/Diagnosis: AMS (altered mental status) Qualifiers: Altered mental status type: unspecified Qualified Code(s): R41.82 - Altered mental status, unspecified Condition: Stable Disposition: HOME - Admission No - Additional Discharge Information Prescriptions: Cephalexin Monohydrate [Keflex -] 500 mg PO BID 7 Days #14 capsule - Follow up/Referral Referrals: Charanjit Willingham [Primary Care Provider] - - Patient Discharge Instructions Patient Printed Discharge Instructions: DI for Urinary Tract Infection (UTI) Additional Instructions: You were evaluated today for altered mental status. Your labs show that you do not have a serious infection or electrolyte problems. Your CT scans do not show any serious disease that needs treatment. Your urine tests showed blood and some evidence of infection. We have treated you with antibiotics, and are discharging you home with more antibiotics. You need to follow-up with your primary doctor as well as a urologist for further care. If you experience any worsening confusion, fever, back pain, blood in your urine, or any other new or concerning symptoms, please return to the emergency room. - Post Discharge Activity
[2019-04-19] MEDS ORDERED: CEFTRIAXONE 1 GM in DEXTROSE 5%-WATER - 100 ML IVPB ONE (01:19)
[2019-04-19 01:20] LABS: ALK PHOS 64 U/L (45-117); ANION GAP 6 MMOL/L (8-16); POTASSIUM 3.8 mmol/L (3.5-5.1); SGOT/AST 19 U/L (15-37)
[2019-04-19] MEDS ORDERED: CEFTRIAXONE 1 GM/50 ML BAG ONE (01:25)
[2019-04-19] MEDS ORDERED: AZITHROMYCIN IVPB 500 MG in DEXTROSE 5%-WATER - 250 ML IVPB ONE (05:58)
[2019-04-19] MEDS ORDERED: AZITHROMYCIN IVPB 500 MG/250 ML BAG IVPB ONE (06:00)
[2019-04-19] MEDS ORDERED: PATIENT'S OWN MEDICATION (NON-FORMULARY) (Alendronate Sodium [Binosto] 70 MG) PO SCH (12:00)
[2019-04-19] MEDS ORDERED: SODIUM CHLORIDE 1,000 ML IV SCH (12:00)
[2019-04-19] MEDS ORDERED: HEPARIN NA (PORCINE) 5,000 UNITS/ML 1ML VIAL ONE (12:26)
[2019-04-19] MEDS: HEPARIN NA (PORCINE) 5,000 UNITS/ML 1ML VIAL SQ SCH ×2 (12:35→23:48)
--- NOTE | 2019-04-19 12:37 | HP ---
CHIEF COMPLAINT: flu like symptoms PCP: Joi Starkey HISTORY OF PRESENT ILLNESS: 79yo woman with a PMH of schizophrenia, HLD, CAD, GERD who presents from her SNF with report of AMS and flu-like symptoms. At the time of my interview, pt states she feels ok. She was oriented to person only. Denies fever, chills, nausea, vomiting, diarrhea. ER course was notable for: (1) WBC 11.7, Statistical Reporting Analyst 1.5 (baseline from 2016 0.9) (2) UA 4+ protein, 3+ blood, 2000 RBC, 50 WBC, LE pos, 8 epith cells (3) flu neg (4) CT head: chronic sinusitis, CXR: minimal L basilar atalectasis/scarring Recent Travel: none PAST MEDICAL HISTORY: schizophrenia, HLD, CAD, GERD PAST SURGICAL HISTORY: none known Social History: Smoking: had a 4 pack year hist in 2016 Alcohol: none Drugs: none Allergies No Known Allergies Allergy (Verified 04/18/19 22:56) HOME MEDICATIONS: Home Medications Medication Instructions Recorded Alendronate Sodium [Binosto] 70 mg PO WEEKLY 04/21/15 Aspirin [ASA -] 81 mg PO DAILY 04/21/15 Calcium 500 mg PO TID 04/21/15 Clopidogrel Bisulfate [Clopidogrel] 75 mg PO HS 04/21/15 Mirtazapine [Remeron -] 30 mg PO HS 04/21/15 Multivit with Calcium,Iron,Min 1 each PO DAILY 04/21/15 [Tab A Ezra] Potassium Citrate/Citric Acid [Pot 1 each PO BID 04/21/15 Citrate-Citric Acid Packet] Pravastatin Sodium 10 mg PO DAILY 04/21/15 Risperidone [Risperdal] 4 mg PO HS 04/21/15 Topiramate [Topamax] 400 mg PO HS 04/21/15 Ziprasidone [Geodon -] 60 mg PO BID 04/21/15 Zolpidem Tartrate 10 mg PO HS 04/21/15 traZODone HCL [Desyrel -] 50 mg PO HS 04/21/15 Cephalexin Monohydrate [Keflex -] 500 mg PO BID 7 Days #14 capsule 04/19/19 Gabapentin [Neurontin -] 100 mg PO TID 04/19/19 Oxybutynin Chloride [Ditropan Xl] 10 mg PO DAILY 04/19/19 REVIEW OF SYSTEMS CONSTITUTIONAL: Absent: fever, chills, diaphoresis, generalized weakness, malaise, loss of appetite, weight change HEENT: Absent: rhinorrhea, nasal congestion, throat pain, throat swelling, difficulty swallowing, mouth swelling, ear pain, eye pain, visual changes CARDIOVASCULAR: Absent: chest pain, syncope, palpitations, irregular heart rate, lightheadedness , peripheral edema RESPIRATORY: Absent: cough, shortness of breath, dyspnea with exertion, orthopnea, wheezing, stridor, hemoptysis GASTROINTESTINAL: Absent: abdominal pain, abdominal distension, nausea, vomiting, diarrhea, constipation, melena, hematochezia GENITOURINARY: Absent: dysuria, frequency, urgency, hesitancy, hematuria, flank pain, genital pain MUSCULOSKELETAL: Absent: myalgia, arthralgia, joint swelling, back pain, neck pain SKIN: Absent: rash, itching, pallor HEMATOLOGIC/IMMUNOLOGIC: Absent: easy bleeding, easy bruising, lymphadenopathy, frequent infections ENDOCRINE: Absent: unexplained weight gain, unexplained weight loss, heat intolerance, cold intolerance NEUROLOGIC: Absent: headache, focal weakness or paresthesias, dizziness, unsteady gait, seizure, mental status changes, bladder or bowel incontinence PSYCHIATRIC: Absent: anxiety, depression, suicidal or homicidal ideation, hallucinations. PHYSICAL EXAMINATION Vital Signs - 24 hr 04/18/19 04/18/19 04/18/19 22:34 23:25 23:56 Temperature 98.5 F Pulse Rate 74 Pulse Rate [ Right Radial] Respiratory 18 Rate Blood Pressure 89/54 L Blood Pressure 91/65 [Right Arm] O2 Sat by Pulse 100 100 Oximetry (%) 04/19/19 04/19/19 04/19/19 01:29 05:17 09:11 Temperature 99.0 F Pulse Rate Pulse Rate [ 80 84 74 Right Radial] Respiratory 18 18 20 Rate Blood Pressure Blood Pressure 111/60 110/62 102/54 L [Right Arm] O2 Sat by Pulse 100 97 97 Oximetry (%) 04/19/19 11:47 Temperature Pulse Rate Pulse Rate [ Right Radial] Respiratory Rate Blood Pressure Blood Pressure [Right Arm] O2 Sat by Pulse 97 Oximetry (%) Gen: AAOx1 to person. NAD HEENT: NCAT, EOMI Cardio: rrr, normal s1s2, no mrg noted Pulm: cta b/l Abd: soft, nontender, nondistended Ext: no edema Laboratory Results - last 24 hr 04/18/19 04/18/19 04/18/19 23:30 23:30 23:30 WBC 11.7 H RBC 3.54 L Hgb 10.4 L Hct 32.4 MCV 91.4 MCH 29.5 MCHC 32.3 RDW 14.2 Plt Count 197 D MPV 11.7 H Absolute Neuts (auto) 8.6 H Neutrophils % 73.2 D Lymphocytes % 16.8 D Monocytes % 7.0 Eosinophils % 2.8 Basophils % 0.2 Nucleated RBC % 0 PT with INR 12.60 INR 1.07 PTT (Actin FS) 28.8 VBG pH POC VBG pCO2 POC VBG pO2 VBG HCO3 VBG O2 Sat (Roland) VBG Base Excess Sodium 142 Potassium 3.8 Chloride 111 H Carbon Dioxide 25 Anion Gap 6 L BUN 38.6 H Creatinine 1.5 H Est GFR (CKD-EPI)AfAm 38.28 Est GFR (CKD-EPI)NonAf 33.02 Random Glucose 113 H Lactic Acid Calcium 8.9 Total Bilirubin 0.2 AST 19 ALT 13 Alkaline Phosphatase 64 Troponin I < 0.02 Total Protein 6.5 Albumin 2.9 L Urine Color Urine Appearance Urine pH Ur Specific [place] Urine Protein Urine Glucose (UA) Urine Ketones Urine Blood Urine Nitrite Urine Bilirubin Urine Urobilinogen Ur Leukocyte Esterase Urine WBC (Auto) Urine RBC (Auto) Urine Casts (Auto) U Pathogenic Cast Auto U Epithel Cells (Auto) Urine Bacteria (Auto) Influenza A (Rapid) Influenza B (Rapid) 04/18/19 04/18/19 04/19/19 23:30 23:30 00:40 WBC RBC Hgb Hct MCV MCH MCHC RDW Plt Count MPV Absolute Neuts (auto) Neutrophils % Lymphocytes % Monocytes % Eosinophils % Basophils % Nucleated RBC % PT with INR INR PTT (Actin FS) VBG pH 7.35 POC VBG pCO2 44.3 POC VBG pO2 72.8 H VBG HCO3 23.6 VBG O2 Sat (Roland) 94.2 H VBG Base Excess -1.5 Sodium Potassium Chloride Carbon Dioxide Anion Gap BUN Creatinine Est GFR (CKD-EPI)AfAm Est GFR (CKD-EPI)NonAf Random Glucose Lactic Acid 1.0 Calcium Total Bilirubin AST ALT Alkaline Phosphatase Troponin I Total Protein Albumin Urine Color Red Urine Appearance Cloudy Urine pH 7.5 Ur Specific [place] 1.020 Urine Protein 4+ H Urine Glucose (UA) Trace Urine Ketones Negative Urine Blood 3+ H Urine Nitrite Negative Urine Bilirubin Negative Urine Urobilinogen 0.2 Ur Leukocyte Esterase 1+ H Urine WBC (Auto) 47 Urine RBC (Auto) 2136 Urine Casts (Auto) 10 U Pathogenic Cast Auto None U Epithel Cells (Auto) 8.1 Urine Bacteria (Auto) 10.7 Influenza A (Rapid) Influenza B (Rapid) 04/19/19 09:05 WBC RBC Hgb Hct MCV MCH MCHC RDW Plt Count MPV Absolute Neuts (auto) Neutrophils % Lymphocytes % Monocytes % Eosinophils % Basophils % Nucleated RBC % PT with INR INR PTT (Actin FS) VBG pH POC VBG pCO2 POC VBG pO2 VBG HCO3 VBG O2 Sat (Roland) VBG Base Excess Sodium Potassium Chloride Carbon Dioxide Anion Gap BUN Creatinine Est GFR (CKD-EPI)AfAm Est GFR (CKD-EPI)NonAf Random Glucose Lactic Acid Calcium Total Bilirubin AST ALT Alkaline Phosphatase Troponin I Total Protein Albumin Urine Color Urine Appearance Urine pH Ur Specific [place] Urine Protein Urine Glucose (UA) Urine Ketones Urine Blood Urine Nitrite Urine Bilirubin Urine Urobilinogen Ur Leukocyte Esterase Urine WBC (Auto) Urine RBC (Auto) Urine Casts (Auto) U Pathogenic Cast Auto U Epithel Cells (Auto) Urine Bacteria (Auto) Influenza A (Rapid) Negative Influenza B (Rapid) Negative ASSESSMENT/PLAN: 79yo woman with a PMH of schizophrenia, HLD, CAD, GERD who presents from her SNF with report of AMS and flu-like symptoms. Flu like illness -flu swab negative -Temp 99 -no flu symptoms on my interview. Though, pt is poor historian with Schizophrenia and likely element of dementia ALDA -Last known baseline raised printer 0.9 from 2016 -UA with protein, blood, renetta, leuks. ? contaminated sample. Will repeat -? flu-like illness associated dehydration. BUN elevated, BUN:Statistical Reporting Analyst > 20:1 -will hydrate -monitor Statistical Reporting Analyst -avoid nephrotoxins HLD -c/w atorvastatin Schizophrenia -c/w mirtazipine, risperidone, topiramate, trazodone, ziprasidone, zolpidem CAD -c/w asa, plavix DVT PPx -hep sub q Visit type - Emergency Visit Emergency Visit: Yes ED Registration Date: 02/01/20 Care time: The patient presented to the Emergency Department on the above date and was hospitalized for further evaluation of their emergent condition. - New Patient This patient is new to me today: Yes Date on this admission: 04/19/19 - Critical Care Critical Care patient: No ATTENDING PHYSICIAN STATEMENT I saw and evaluated the patient. I reviewed the resident's note and discussed the case with the resident. I agree with the resident's findings and plan as documented. SUBJECTIVE: OBJECTIVE: ASSESSMENT AND PLAN:
[2019-04-19 13:05] LABS: URINE APPEARANCE TURBID; URINE COLOR RED
[2019-04-19 13:06] LABS: EPI CELLS 5.6 /HPF (0-5/HPF); PH,URINE 8.5 (5.0-8.0); URINE BILIRUBIN NEGATIVE (NEGATIVE); URINE GLUCOSE (UA) NEGATIVE (NEGATIVE); URINE KETONE NEGATIVE (NEGATIVE); URINE LEUK ESTERASE 3+ (NEGATIVE); URINE NITRITE POSITIVE (NEGATIVE); URINE PROTEIN 4+ (NEGATIVE); URINE UROBILINOGEN 0.2 mg/dL (0.2-1.0)
[2019-04-19 13:07] LABS: HYALINE CASTS 37.3 /lpf (0-8); URINE BACTERIA 388.2 /hpf (NEGATIVE)
[2019-04-19] MEDS ORDERED: GABAPENTIN 100 MG CAPSULE ONE (14:06)
[2019-04-19] MEDS: GABAPENTIN 100 MG CAPSULE PO SCH ×2 (14:14→23:49)
[2019-04-19] MEDS: CALCIUM (OYSTER SHELL) 500 MG TABLET (FP) PO SCH ×2 (14:30→23:49)
--- NOTE | 2019-04-19 15:06 | PN ---
Teaching Attending Note Name of Resident: Harpreet Gee ATTENDING PHYSICIAN STATEMENT I saw and evaluated the patient. I reviewed the resident's note and discussed the case with the resident. I agree with the resident's findings and plan as documented. SUBJECTIVE: Feels okay. No complaints. No fever/chills. OBJECTIVE: Tmax 99, HR 84, BP 110/82 SpO2 97% RA. AAO x 2. No focal Neurological deficits. ZHANE. Last Vital Signs Temp Pulse Resp BP Pulse Ox 99.0 F 88 20 100/58 L 97 04/19/19 09:11 04/19/19 14:30 04/19/19 14:30 04/19/19 14:30 04/19/19 14:30 HEENT - Atraumatic, Normocephalic. Heart - S1, S2, RRR Lungs - clear to auscultation Abdomen - Soft, non-tender. Bowel Sounds normal. Extremities - no edema, no calf tenderness. Laboratory Results - last 24 hr 04/18/19 04/18/19 04/18/19 23:30 23:30 23:30 WBC 11.7 H RBC 3.54 L Hgb 10.4 L Hct 32.4 MCV 91.4 MCH 29.5 MCHC 32.3 RDW 14.2 Plt Count 197 D MPV 11.7 H Absolute Neuts (auto) 8.6 H Neutrophils % 73.2 D Lymphocytes % 16.8 D Monocytes % 7.0 Eosinophils % 2.8 Basophils % 0.2 Nucleated RBC % 0 PT with INR 12.60 INR 1.07 PTT (Actin FS) 28.8 VBG pH POC VBG pCO2 POC VBG pO2 VBG HCO3 VBG O2 Sat (Roland) VBG Base Excess Sodium 142 Potassium 3.8 Chloride 111 H Carbon Dioxide 25 Anion Gap 6 L BUN 38.6 H Creatinine 1.5 H Est GFR (CKD-EPI)AfAm 38.28 Est GFR (CKD-EPI)NonAf 33.02 Random Glucose 113 H Lactic Acid Calcium 8.9 Total Bilirubin 0.2 AST 19 ALT 13 Alkaline Phosphatase 64 Troponin I < 0.02 Total Protein 6.5 Albumin 2.9 L Urine Color Urine Appearance Urine pH Ur Specific Maynard Urine Protein Urine Glucose (UA) Urine Ketones Urine Blood Urine Nitrite Urine Bilirubin Urine Urobilinogen Ur Leukocyte Esterase Urine WBC (Auto) Urine RBC (Auto) Urine Casts (Auto) U Pathogenic Cast Auto U Epithel Cells (Auto) Urine Bacteria (Auto) Influenza A (Rapid) Influenza B (Rapid) 04/18/19 04/18/19 04/19/19 23:30 23:30 00:40 WBC RBC Hgb Hct MCV MCH MCHC RDW Plt Count MPV Absolute Neuts (auto) Neutrophils % Lymphocytes % Monocytes % Eosinophils % Basophils % Nucleated RBC % PT with INR INR PTT (Actin FS) VBG pH 7.35 POC VBG pCO2 44.3 POC VBG pO2 72.8 H VBG HCO3 23.6 VBG O2 Sat (Roland) 94.2 H VBG Base Excess -1.5 Sodium Potassium Chloride Carbon Dioxide Anion Gap BUN Creatinine Est GFR (CKD-EPI)AfAm Est GFR (CKD-EPI)NonAf Random Glucose Lactic Acid 1.0 Calcium Total Bilirubin AST ALT Alkaline Phosphatase Troponin I Total Protein Albumin Urine Color Red Urine Appearance Cloudy Urine pH 7.5 Ur Specific Maynard 1.020 Urine Protein 4+ H Urine Glucose (UA) Trace Urine Ketones Negative Urine Blood 3+ H Urine Nitrite Negative Urine Bilirubin Negative Urine Urobilinogen 0.2 Ur Leukocyte Esterase 1+ H Urine WBC (Auto) 47 Urine RBC (Auto) 2136 Urine Casts (Auto) 10 U Pathogenic Cast Auto None U Epithel Cells (Auto) 8.1 Urine Bacteria (Auto) 10.7 Influenza A (Rapid) Influenza B (Rapid) 04/19/19 04/19/19 09:05 11:40 WBC RBC Hgb Hct MCV MCH MCHC RDW Plt Count MPV Absolute Neuts (auto) Neutrophils % Lymphocytes % Monocytes % Eosinophils % Basophils % Nucleated RBC % PT with INR INR PTT (Actin FS) VBG pH POC VBG pCO2 POC VBG pO2 VBG HCO3 VBG O2 Sat (Roland) VBG Base Excess Sodium Potassium Chloride Carbon Dioxide Anion Gap BUN Creatinine Est GFR (CKD-EPI)AfAm Est GFR (CKD-EPI)NonAf Random Glucose Lactic Acid Calcium Total Bilirubin AST ALT Alkaline Phosphatase Troponin I Total Protein Albumin Urine Color Red Urine Appearance Turbid Urine pH 8.5 H Ur Specific Maynard 1.010 Urine Protein 4+ H Urine Glucose (UA) Negative Urine Ketones Negative Urine Blood 4+ H Urine Nitrite Positive H Urine Bilirubin Negative Urine Urobilinogen 0.2 Ur Leukocyte Esterase 3+ H Urine WBC (Auto) 61.0 Urine RBC (Auto) 5085.0 Urine Casts (Auto) 37.3 U Pathogenic Cast Auto U Epithel Cells (Auto) 5.6 Urine Bacteria (Auto) 388.2 Influenza A (Rapid) Negative Influenza B (Rapid) Negative Current Medications Generic Name Dose Route Start Last Admin Trade Name Freq PRN Reason Stop Dose Admin Aspirin 81 mg 04/20/19 10:00 Asa - PO DAILY PRAVEEN Atorvastatin Calcium 10 mg 04/20/19 22:00 Lipitor - PO HS PRAVEEN Calcium Carbonate 500 mg 04/19/19 14:00 04/19/19 14:30 Os-Andres 500mg - PO 500 mg TID PRAVEEN Administration Clopidogrel Bisulfate 75 mg 04/19/19 22:00 Plavix - PO HS PRAVEEN Gabapentin 100 mg 04/19/19 14:00 04/19/19 14:14 Neurontin - PO 100 mg TID PRAVEEN Administration Heparin Sodium (Porcine) 5,000 unit 04/19/19 12:00 04/19/19 12:35 Heparin - SQ 5,000 unit TID PRAVEEN Administration Ceftriaxone Sodium 1 gm/ 50 mls @ 100 mls/hr 04/20/19 10:00 Dextrose IVPB DAILY [facility] Protocol Sodium Chloride 1,000 mls @ 50 mls/hr 04/19/19 12:00 04/19/19 12:35 Normal Saline - IV 04/20/19 11:50 50 mls/hr ASDIR PRAVEEN Administration Mirtazapine 30 mg 04/19/19 22:00 Remeron - PO HS PRAVEEN Multivitamins/Minerals 1 each 04/20/19 10:00 Theragran-M PO DAILY [facility] Potassium Citrate/Citric Acid 10 meq 04/19/19 22:00 Cytra-K - PO BID [facility] Risperidone 4 mg 04/19/19 22:00 Risperdal - PO HS PRAVEEN Solifenacin 5 mg 04/20/19 10:00 Vesicare - PO DAILY PRAVEEN Topiramate 400 mg 04/19/19 22:00 Topamax - PO HS PRAVEEN Trazodone HCl 50 mg 04/19/19 22:00 Desyrel - PO HS PRAVEEN Ziprasidone 60 mg 04/19/19 22:00 Geodon - PO BID [facility] Zolpidem Tartrate 5 mg 04/19/19 22:00 Ambien - PO HS PRN INSOMNIA Home Medications Medication Instructions Recorded Alendronate Sodium [Binosto] 70 mg PO WEEKLY 04/21/15 Aspirin [ASA -] 81 mg PO DAILY 04/21/15 Calcium 500 mg PO TID 04/21/15 Clopidogrel Bisulfate [Clopidogrel] 75 mg PO HS 04/21/15 Mirtazapine [Remeron -] 30 mg PO HS 04/21/15 Multivit with Calcium,Iron,Min 1 each PO DAILY 04/21/15 [Tab A Ezra] Potassium Citrate/Citric Acid [Pot 1 each PO BID 04/21/15 Citrate-Citric Acid Packet] Pravastatin Sodium 10 mg PO DAILY 04/21/15 Risperidone [Risperdal] 4 mg PO HS 04/21/15 Topiramate [Topamax] 400 mg PO HS 04/21/15 Ziprasidone [Geodon -] 60 mg PO BID 04/21/15 Zolpidem Tartrate 10 mg PO HS 04/21/15 traZODone HCL [Desyrel -] 50 mg PO HS 04/21/15 Cephalexin Monohydrate [Keflex -] 500 mg PO BID 7 Days #14 capsule 04/19/19 Gabapentin [Neurontin -] 100 mg PO TID 04/19/19 Oxybutynin Chloride [Ditropan Xl] 10 mg PO DAILY 04/19/19 ASSESSMENT AND PLAN: 79 year old female with history of Schizophrenia, HLD, CAD, GERD, presents from [facility], with report of AMS and flu-like symptoms. 1. Acute Metabolic Encephalopathy secondary to Pneumonia and UTI CT head: chronic sinusitis, no acute findings, moderate atrophy. CT A/P - severe cystitis with surrounding mesenteric and pre-sacral edema, LML Pneumonia Low grade temp - 99 Ceftriaxone/Azithromycin. Influenza swab Urine legionella/Urine Cx/Blood Cx pending. Collateral Hx required to determine baseline mental status. B12/Folate/RPR requested. 2. Schizophrienia - appears stable, no evidence of psychosis currently. Continue Mirtazipine, Risperidone, Topiramate, Trazodone, Ziprasidone. 3. CKD 3 - Stable. Creat at baseline. 4. HLD - Continue Statin 5. CAD - Continue Aspirin/Plavix/Statin DVT Px - Heparin SQ.
--- NOTE | 2019-04-19 15:46 | EKG ---
Test Reason : Blood Pressure : / mmHG Vent. Rate : 075 BPM Atrial Rate : 075 BPM P-R Int : 226 ms QRS Dur : 082 ms QT Int : 418 ms P-R-T Axes : 082 063 071 degrees QTc Int : 466 ms POOR DATA QUALITY, INTERPRETATION MAY BE ADVERSELY AFFECTED SINUS RHYTHM WITH 1ST DEGREE A-V BLOCK WITH PREMATURE SUPRAVENTRICULAR COMPLEXES NONSPECIFIC ST ABNORMALITY ABNORMAL ECG Confirmed by MD LINDA, CRISELDA ([id number]) on 04/19/2019 3:46:28 PM Referred By: Confirmed By:CRISELDA MCKEON MD
[2019-04-19] MEDS ORDERED: risperiDONE 2 MG TABLET PO SCH (22:00)
[2019-04-19] MEDS ORDERED: ZIPRASIDONE 60 MG CAPSULE PO SCH (22:00)
[2019-04-19] MEDS ORDERED: ZOLPIDEM TARTRATE 5 MG TABLET PO PRN (22:00)
[2019-04-19] MEDS: risperiDONE 1 MG TABLET PO SCH (22:31)
[2019-04-19] MEDS ORDERED: MIRTAZAPINE 15 MG TABLET (FP) ONE (23:43)
[2019-04-19] MEDS: POTASSIUM CITRATE/CITRIC ACID 2 MEQ/ML ML PO SCH (23:48)
[2019-04-19] MEDS: traZODone HCL 50 MG TABLET (FP) PO SCH (23:48)
[2019-04-19] MEDS: CLOPIDOGREL BISULFATE 75 MG TABLET (FP) PO SCH (23:49)
[2019-04-19] MEDS: TOPIRAMATE 100 MG TABLET PO SCH (23:49)
[2019-04-19] MEDS: MIRTAZAPINE 30 MG TABLET (FP) PO SCH (23:49)
[2019-04-20] MEDS: CALCIUM (OYSTER SHELL) 500 MG TABLET (FP) PO SCH ×3 (06:56→21:28)
[2019-04-20] MEDS: GABAPENTIN 100 MG CAPSULE PO SCH ×3 (06:56→21:28)
[2019-04-20] MEDS: HEPARIN NA (PORCINE) 5,000 UNITS/ML 1ML VIAL SQ SCH ×3 (06:56→21:28)
[2019-04-20 08:29] LABS: HEMATOCRIT 30.2 % (32.4-45.2); MCHC 33.2 g/dl (32.0-36.0); MEAN CELL VOLUME 90.6 fl (80-96); MEAN PLT VOLUME 11.7 fl (7.5-11.1); PLATELET COUNT 180 K/MM3 (134-434); RBC 3.34 M/mm3 (3.60-5.2); RDW 14.3 % (11.6-15.6); WHITE BLOOD COUNT 8.6 K/mm3 (4.0-10.0)
[2019-04-20 09:12] LABS: BLOOD UREA NITROGEN 20.5 mg/dL (7-18); CALCIUM 8.4 mg/dL (8.5-10.1); CREATININE 1.2 mg/dL (0.55-1.3); POTASSIUM 3.9 mmol/L (3.5-5.1)
[2019-04-20] MEDS ORDERED: SODIUM CHLORIDE 500 ML IV STA (09:25)
[2019-04-20] MEDS ORDERED: VANCOMYCIN 1 GRAM (PRE-DOCKED) 1,000 MG/250 ML BAG IVPB ONE (10:00)
[2019-04-20] MEDS ORDERED: PT OWN MED DRAWER 7, Y5N ONE ×5 (10:46→21:15)
[2019-04-20] MEDS ORDERED: DEXTROSE 5%-WATER - 50 ML IVPB ONE (10:47)
[2019-04-20] MEDS ORDERED: cefTRIAXone SODIUM 1 GM VIAL ONE (10:47)
[2019-04-20] MEDS: ASPIRIN 81 MG CHEWABLE TABLETS PO SCH (10:55)
[2019-04-20] MEDS: ZIPRASIDONE 20 MG CAPSULE PO SCH ×2 (10:56→21:28)
[2019-04-20] MEDS: MULTIVITAMINS THER W-MINERALS COMBO TABLET (FP) PO SCH (10:57)
[2019-04-20] MEDS: SOLIFENACIN SUCCINATE 5 MG TAB PO SCH (10:57)
[2019-04-20] MEDS: CEFTRIAXONE 1 GM in DEXTROSE 5%-WATER - 50 ML IVPB SCH (10:57)
[2019-04-20] MEDS: POTASSIUM CITRATE/CITRIC ACID 2 MEQ/ML ML PO SCH ×2 (14:28→21:28)
--- NOTE | 2019-04-20 15:02 | PN ---
Progress Note (short form) - Note Progress Note: SUBJECTIVE: Feels well. No complaints. No fever/chills. OBJECTIVE: Afebrile, BP borderline. No focal Neurological deficits. ZHANE. AAO x 2. Last Vital Signs Temp Pulse Resp BP Pulse Ox 98.5 F 70 20 95/62 96 04/20/19 08:00 04/20/19 08:00 04/20/19 08:00 04/20/19 08:00 04/20/19 07:00 HEENT - Atraumatic, Normocephalic. Heart - S1, S2, RRR Lungs - clear to auscultation Abdomen - Soft, non-tender. Bowel Sounds normal. Extremities - no edema, no calf tenderness. Laboratory Results - last 24 hr 04/19/19 04/20/19 04/20/19 11:40 06:44 06:44 WBC 8.6 RBC 3.34 L Hgb 10.0 L Hct 30.2 L MCV 90.6 MCH 30.0 MCHC 33.2 RDW 14.3 Plt Count 180 MPV 11.7 H Sodium 144 Potassium 3.9 Chloride 118 H Carbon Dioxide 20 L Anion Gap 6 L BUN 20.5 H Creatinine 1.2 Est GFR (CKD-EPI)AfAm 50.13 Est GFR (CKD-EPI)NonAf 43.25 Random Glucose 79 Calcium 8.4 L Vitamin B12 328 TSH 1.99 Free T4 1.08 U Pathogenic Cast Auto None seen Current Medications Generic Name Dose Route Start Last Admin Trade Name Freq PRN Reason Stop Dose Admin Aspirin 81 mg 04/20/19 10:00 04/20/19 10:55 Asa - PO 81 mg DAILY PRAVEEN Administration Atorvastatin Calcium 10 mg 04/20/19 22:00 Lipitor - PO HS PRAVEEN Calcium Carbonate 500 mg 04/19/19 14:00 04/20/19 13:22 Os-Andres 500mg - PO 500 mg TID PRAVEEN Administration Clopidogrel Bisulfate 75 mg 04/19/19 22:00 04/19/19 23:49 Plavix - PO 75 mg HS PRAVEEN Administration Gabapentin 100 mg 04/19/19 14:00 04/20/19 13:22 Neurontin - PO 100 mg TID PRAVEEN Administration Heparin Sodium (Porcine) 5,000 unit 04/19/19 12:00 04/20/19 13:22 Heparin - SQ 5,000 unit TID PRAVEEN Administration Ceftriaxone Sodium 1 gm/ 50 mls @ 100 mls/hr 04/20/19 10:00 04/20/19 10:57 Dextrose IVPB 100 mls/hr DAILY PRAVEEN Administration Protocol Mirtazapine 30 mg 04/19/19 22:00 04/19/19 23:49 Remeron - PO 30 mg HS PRAVEEN Administration Multivitamins/Minerals 1 each 04/20/19 10:00 04/20/19 10:57 Theragran-M PO 1 each DAILY PRAVEEN Administration Potassium Citrate/Citric Acid 10 meq 04/19/19 22:00 04/20/19 14:28 Cytra-K - PO 10 meq BID PRAVEEN Administration Risperidone 4 mg 04/19/19 23:58 04/19/19 22:31 Risperdal - PO 4 mg HS PRAVEEN Administration Solifenacin 5 mg 04/20/19 10:00 04/20/19 10:57 Vesicare - PO 5 mg DAILY PRAVEEN Administration Topiramate 400 mg 04/19/19 22:00 04/19/19 23:49 Topamax - PO 400 mg HS PRAVEEN Administration Trazodone HCl 50 mg 04/19/19 22:00 04/19/19 23:48 Desyrel - PO 50 mg HS PRAVEEN Administration Ziprasidone 60 mg 04/19/19 23:24 04/20/19 10:56 Geodon - PO 60 mg BID PRAVEEN Administration Zolpidem Tartrate 5 mg 04/19/19 22:00 Ambien - PO HS PRN INSOMNIA Home Medications Medication Instructions Recorded Alendronate Sodium [Binosto] 70 mg PO WEEKLY 04/21/15 Aspirin [ASA -] 81 mg PO DAILY 04/21/15 Calcium 500 mg PO TID 04/21/15 Clopidogrel Bisulfate [Clopidogrel] 75 mg PO HS 04/21/15 Mirtazapine [Remeron -] 30 mg PO HS 04/21/15 Multivit with Calcium,Iron,Min 1 each PO DAILY 04/21/15 [Tab A Ezra] Potassium Citrate/Citric Acid [Pot 1 each PO BID 04/21/15 Citrate-Citric Acid Packet] Pravastatin Sodium 10 mg PO DAILY 04/21/15 Risperidone [Risperdal] 4 mg PO HS 04/21/15 Topiramate [Topamax] 400 mg PO HS 04/21/15 Ziprasidone [Geodon -] 60 mg PO BID 04/21/15 Zolpidem Tartrate 10 mg PO HS 04/21/15 traZODone HCL [Desyrel -] 50 mg PO HS 04/21/15 Cephalexin Monohydrate [Keflex -] 500 mg PO BID 7 Days #14 capsule 04/19/19 Gabapentin [Neurontin -] 100 mg PO TID 04/19/19 Oxybutynin Chloride [Ditropan Xl] 10 mg PO DAILY 04/19/19 ASSESSMENT AND PLAN: 79 year old female with history of Schizophrenia, HLD, CAD, GERD, CKD 3 presents from [facility], with report of AMS and flu-like symptoms. 1. Acute Metabolic Encephalopathy secondary to Pneumonia CT head: chronic sinusitis, no acute findings, moderate atrophy. CT A/P - severe cystitis with surrounding mesenteric and pre-sacral edema, pneumonia - awaiting official radiology read. Low grade temperature resolved. Continue Ceftriaxone/Azithromycin. Influenza negative Urine Cx pending. Collateral Hx required to determine baseline mental status. Urology consult. 2. Schizophrienia - appears stable, no evidence of psychosis currently. Continue Mirtazipine, Risperidone, Topiramate, Trazodone, Ziprasidone. 3. CKD 3 - Stable. Creat at baseline. 4. HLD - Continue Statin 5. CAD - Continue Aspirin/Plavix/Statin 6. Positive Blood Cx - Gram pos cocci in clusters - 1 bottle, likely contaminant. Will cover with IV Vanco x 1. Repeat Blood Cx requested. ID consulted. DVT Px - Heparin SQ. Visit type - Emergency Visit Emergency Visit: Yes ED Registration Date: 04/19/19 Care time: The patient presented to the Emergency Department on the above date and was hospitalized for further evaluation of their emergent condition. - New Patient This patient is new to me today: No - Critical Care Critical Care patient: No - Discharge Referral Referred to [facility] Med P.C.: No
[2019-04-20] MEDS ORDERED: MIRTAZAPINE 15 MG TABLET (FP) ONE (21:13)
[2019-04-20] MEDS: AZITHROMYCIN IVPB 500 MG/250 ML BAG IVPB SCH (21:26)
[2019-04-20] MEDS: risperiDONE 1 MG TABLET PO SCH (21:27)
[2019-04-20] MEDS: TOPIRAMATE 100 MG TABLET PO SCH (21:27)
[2019-04-20] MEDS: CLOPIDOGREL BISULFATE 75 MG TABLET (FP) PO SCH (21:27)
[2019-04-20] MEDS: ATORVASTATIN CA 10 MG TABLET (FP) PO SCH (21:27)
[2019-04-20] MEDS: traZODone HCL 50 MG TABLET (FP) PO SCH (21:29)
[2019-04-20] MEDS: MIRTAZAPINE 30 MG TABLET (FP) PO SCH (21:29)
[2019-04-21] MEDS: GABAPENTIN 100 MG CAPSULE PO SCH ×3 (06:10→21:15)
[2019-04-21] MEDS: HEPARIN NA (PORCINE) 5,000 UNITS/ML 1ML VIAL SQ SCH ×3 (06:10→21:17)
[2019-04-21] MEDS: CALCIUM (OYSTER SHELL) 500 MG TABLET (FP) PO SCH ×3 (06:11→21:14)
[2019-04-21] MEDS ORDERED: PT OWN MED DRAWER 7, Y5N ONE ×3 (09:51→21:13)
[2019-04-21] MEDS ORDERED: DEXTROSE 5%-WATER - 50 ML IVPB ONE (09:52)
[2019-04-21] MEDS ORDERED: cefTRIAXone SODIUM 1 GM VIAL ONE (09:52)
[2019-04-21] MEDS: CEFTRIAXONE 1 GM in DEXTROSE 5%-WATER - 50 ML IVPB SCH (09:56)
[2019-04-21] MEDS: MULTIVITAMINS THER W-MINERALS COMBO TABLET (FP) PO SCH (09:59)
[2019-04-21] MEDS: ASPIRIN 81 MG CHEWABLE TABLETS PO SCH (09:59)
[2019-04-21] MEDS: ZIPRASIDONE 20 MG CAPSULE PO SCH ×2 (09:59→21:15)
[2019-04-21] MEDS: SOLIFENACIN SUCCINATE 5 MG TAB PO SCH (09:59)
[2019-04-21] MEDS: POTASSIUM CITRATE/CITRIC ACID 2 MEQ/ML ML PO SCH ×2 (10:00→21:13)
[2019-04-21] MEDS: AZITHROMYCIN IVPB 500 MG/250 ML BAG IVPB SCH (10:38)
--- NOTE | 2019-04-21 13:45 | CON.ID ---
Consult Consult Specialty:: infectious diseases Referred by:: Dr Street Reason for Consultation:: cystitis,gm positive bacteremia - History of Present Illness Chief Complaint: ams,hematuria History of Present Illness: 79yo woman with a PMH of schizophrenia, HLD, CAD, GERD who presents from her SNF with report of AMS and flu-like symptoms. At the time of my interview, pt states she feels ok. She was oriented to person only. Denies fever, chills, nausea, vomiting, diarrhea. patient cannot give history,but according to the notes patient came in with ams and heamturia patient is incontinent and at this moment according to the nursing staff there is no blood patient is awake and alert and talking - History Source History Provided By: Medical Record Limitations to Obtaining History: Clinical Condition - Alcohol/Substance Use Hx Alcohol Use: No - Smoking History Smoking history: Former smoker Have you smoked in the past 12 months: No Aproximately how many cigarettes per day: 0 If you are a former smoker, when did you quit?: 15 YEARS AGO Home Medications - Allergies Allergies/Adverse Reactions: Allergies Allergy/AdvReac Type Severity Reaction Status Date / Time No Known Allergies Allergy Verified 04/18/19 22:56 - Home Medications Home Medications: Ambulatory Orders Alendronate Sodium [Binosto] 70 mg PO WEEKLY 04/21/15 Aspirin [ASA -] 81 mg PO DAILY 04/21/15 Calcium 500 mg PO TID 04/21/15 Clopidogrel Bisulfate [Clopidogrel] 75 mg PO HS 04/21/15 Mirtazapine [Remeron -] 30 mg PO HS 04/21/15 Multivit with Calcium,Iron,Min [Tab A Ezra] 1 each PO DAILY 04/21/15 Potassium Citrate/Citric Acid [Pot Citrate-Citric Acid Packet] 1 each PO BID 06/01 Pravastatin Sodium 10 mg PO DAILY 04/21/15 Risperidone [Risperdal] 4 mg PO HS 04/21/15 Topiramate [Topamax] 400 mg PO HS 04/21/15 Ziprasidone [Geodon -] 60 mg PO BID 04/21/15 Zolpidem Tartrate 10 mg PO HS 04/21/15 traZODone HCL [Desyrel -] 50 mg PO HS 04/21/15 Cephalexin Monohydrate [Keflex -] 500 mg PO BID 7 Days #14 capsule 04/19/19 Gabapentin [Neurontin -] 100 mg PO TID 04/19/19 Oxybutynin Chloride [Ditropan Xl] 10 mg PO DAILY 04/19/19 Review of Systems Unable to obtain ROS, reason: unable to obtain Physical Exam Vital Signs: Vital Signs Temperature 98.3 F 04/21/19 07:27 Pulse Rate 78 04/21/19 07:27 Respiratory Rate 18 04/21/19 07:27 Blood Pressure 103/65 04/21/19 07:27 O2 Sat by Pulse Oximetry (%) 96 04/20/19 22:00 Constitutional: Yes: Well Nourished, No Distress, Calm Eyes: Yes: Conjunctiva Clear Neck: Yes: Supple, Trachea Midline Cardiovascular: Yes: Regular Rate and Rhythm Respiratory: Yes: Regular, CTA Bilaterally Musculoskeletal: Yes: WNL Extremities: Yes: WNL Neurological: Yes: Alert, Other Psychiatric: Yes: Other Labs: CBC, BMP 04/20/19 06:44 04/20/19 06:44 Imaging - Results Chest X-ray: Report Reviewed, Image Reviewed Cat Scan: Report Reviewed, Image Reviewed Assessment/Plan 79yo woman with a PMH of schizophrenia, HLD, CAD, GERD who presents from her SNF with report of AMS and flu-like symptoms. ams randolph hld cystitis schizo gm positive bacteremia plan patient with severe cystitis continue ceftriaxone await for repeat cx rest as per the team
--- NOTE | 2019-04-21 15:25 | PN ---
Physical Exam: SUBJECTIVE: Patient seen and examined at bedside. No acute events overnight. Patient mentating well, would like to go back to her nursing facility. OBJECTIVE: Vital Signs Period Temp Pulse Resp BP Sys/Wallace Pulse Ox Last 24 Hr 98.1 F-98.7 F 71-79 18-20 95-122/51-65 96-96 GENERAL: The patient is awake, alert, and oriented, in no acute distress. NECK: Trachea midline, full range of motion, supple. LUNGS: Breath sounds equal, clear to auscultation bilaterally, no wheezes, no crackles, no accessory muscle use. HEART: Regular rate and rhythm, S1, S2 without murmur, rub or gallop. ABDOMEN: Soft, nontender, nondistended, normoactive bowel sounds, EXTREMITIES: 2+ pulses, warm, well-perfused, no edema. NEUROLOGICAL: Cranial nerves II through XII grossly intact. Normal speech, gait not observed. PSYCH: Normal mood, normal affect. Laboratory Results - last 24 hr 04/20/19 04/20/19 04/20/19 03:29 06:00 16:00 Lactic Acid 1.1 RPR Titer Nonreactive Influenza A (Rapid) Negative Influenza B (Rapid) Negative Active Medications Generic Name Dose Route Start Last Admin Trade Name Freq PRN Reason Stop Dose Admin Aspirin 81 mg 04/20/19 10:00 04/21/19 09:59 Asa - PO 81 mg DAILY PRAVEEN Administration Atorvastatin Calcium 10 mg 04/20/19 22:00 04/20/19 21:27 Lipitor - PO 10 mg HS PRAVEEN Administration Calcium Carbonate 500 mg 04/19/19 14:00 04/21/19 13:31 Os-Andres 500mg - PO 500 mg TID PRAVEEN Administration Clopidogrel Bisulfate 75 mg 04/19/19 22:00 04/20/19 21:27 Plavix - PO 75 mg HS PRAVEEN Administration Gabapentin 100 mg 04/19/19 14:00 04/21/19 13:31 Neurontin - PO 100 mg TID PRAVEEN Administration Heparin Sodium (Porcine) 5,000 unit 04/19/19 12:00 04/21/19 13:31 Heparin - SQ 5,000 unit TID PRAVEEN Administration Ceftriaxone Sodium 1 gm/ 50 mls @ 100 mls/hr 04/20/19 10:00 04/21/19 09:56 Dextrose IVPB 100 mls/hr DAILY PRAVEEN Administration Protocol Azithromycin 500 mg in 250 mls @ 250 mls/hr 04/20/19 19:15 04/21/19 10:38 Zithromax 500mg Ivpb (Pre-Docked) IVPB 250 mls/hr DAILY PRAVEEN Administration Mirtazapine 30 mg 04/19/19 22:00 04/20/19 21:29 Remeron - PO 30 mg HS PRAVEEN Administration Multivitamins/Minerals 1 each 04/20/19 10:00 04/21/19 09:59 Theragran-M PO 1 each DAILY PRAVEEN Administration Potassium Citrate/Citric Acid 10 meq 04/19/19 22:00 04/21/19 10:00 Cytra-K - PO 10 meq BID PRAVEEN Administration Risperidone 4 mg 04/19/19 23:58 04/20/19 21:27 Risperdal - PO 4 mg HS PRAVEEN Administration Solifenacin 5 mg 04/20/19 10:00 04/21/19 09:59 Vesicare - PO 5 mg DAILY PRAVEEN Administration Topiramate 400 mg 04/19/19 22:00 04/20/19 21:27 Topamax - PO 400 mg HS PRAVEEN Administration Trazodone HCl 50 mg 04/19/19 22:00 04/20/19 21:29 Desyrel - PO 50 mg HS PRAVEEN Administration Ziprasidone 60 mg 04/19/19 23:24 04/21/19 09:59 Geodon - PO 60 mg BID PRAVEEN Administration Zolpidem Tartrate 5 mg 04/19/19 22:00 Ambien - PO HS PRN INSOMNIA ASSESSMENT/PLAN: Images: CT head: chronic sinusitis, no acute findings, moderate atrophy. CT A/P - severe cystitis with surrounding mesenteric and pre-sacral edema, pneumonia - awaiting official radiology read. #Acute Metabolic Encephalopathy 2/2 possible aspiration Pneumonia given her initial altered mental status - Low grade temperature resolved. - Continue Ceftriaxone (Day 2), d/c azithro given legionella negative (likely not atypical CAP) - Influenza negative - Urine Cx pending, UA 3+ leuk est, but denies any symptoms of UTI. - Urology consult (Dr. Oneill) for the pre-sacral edema likely from severe cystitis, appreciate a comment on that. - Likely will need o/p cystoscopy to evaluate the bladder. - Positive Blood Cx - Gram pos cocci in clusters - 1 bottle, likely contaminant - IV Vanco x 1 given just in case. Rpt culture sent and pending. - Repeat Blood Cx requested. ID consulted ([email or web address]) who would like to continue ceftriaxone 1 g and wait for culture report. - RPR negative #Schizophrenia -appears stable, no evidence of psychosis currently. Continue Mirtazipine, Risperidone, Topiramate, Trazodone, Ziprasidone. #CKD 3 - Stable. - Creatinine at baseline. #HLD - Continue Statin #CAD - Continue Aspirin/Plavix/Statin Dispo: willl fill out form for [employer] with [employer] work. SW informed to have form from them faxed over to us by tm. DVT Px - Heparin SQ. Visit type - Emergency Visit Emergency Visit: Yes ED Registration Date: 04/19/19 Care time: The patient presented to the Emergency Department on the above date and was hospitalized for further evaluation of their emergent condition. - New Patient This patient is new to me today: No - Critical Care Critical Care patient: No - Discharge Referral Referred to [facility] Med P.C.: No ATTENDING PHYSICIAN STATEMENT I saw and evaluated the patient. I reviewed the resident's note and discussed the case with the resident. I agree with the resident's findings and plan as documented. SUBJECTIVE: OBJECTIVE: ASSESSMENT AND PLAN:
--- NOTE | 2019-04-21 16:50 | PN ---
Teaching Attending Note Name of Resident: Rajinder Oneill ATTENDING PHYSICIAN STATEMENT I saw and evaluated the patient. I reviewed the resident's note and discussed the case with the resident. I agree with the resident's findings and plan as documented. SUBJECTIVE: Feels well. No complaints. No abdominal pain/dysuria/hematuria/fever /chills. OBJECTIVE: Afebrile, BP borderline. No focal Neurological deficits. ZHANE. AAO x 2. Last Vital Signs Temp Pulse Resp BP Pulse Ox 98.1 F 79 18 95/51 L 98 04/21/19 15:03 04/21/19 15:03 04/21/19 15:04/21/19 15:04/21/19 09:00 Heart - S1, S2, RRR Lungs - clear to auscultation Abdomen - Soft, non-tender. Bowel Sounds normal. Extremities - no edema, no calf tenderness. Laboratory Results - last 24 hr 04/20/19 03:29 Lactic Acid 1.1 Current Medications Generic Name Dose Route Start Last Admin Trade Name Rosangela PRN Reason Stop Dose Admin Aspirin 81 mg 04/20/19 10:00 04/21/19 09:59 Asa - PO 81 mg DAILY PRAVEEN Administration Atorvastatin Calcium 10 mg 04/20/19 22:00 04/20/19 21:27 Lipitor - PO 10 mg HS PRAVEEN Administration Calcium Carbonate 500 mg 04/19/19 14:00 04/21/19 13:31 Os-Andres 500mg - PO 500 mg TID PRAVEEN Administration Clopidogrel Bisulfate 75 mg 04/19/19 22:00 04/20/19 21:27 Plavix - PO 75 mg HS PRAVEEN Administration Gabapentin 100 mg 04/19/19 14:00 04/21/19 13:31 Neurontin - PO 100 mg TID PRAVEEN Administration Heparin Sodium (Porcine) 5,000 unit 04/19/19 12:00 04/21/19 13:31 Heparin - SQ 5,000 unit TID PRAVEEN Administration Ceftriaxone Sodium 1 gm/ 50 mls @ 100 mls/hr 04/20/19 10:00 04/21/19 09:56 Dextrose IVPB 100 mls/hr DAILY PRAVEEN Administration Protocol Mirtazapine 30 mg 04/19/19 22:00 04/20/19 21:29 Remeron - PO 30 mg HS PRAVEEN Administration Multivitamins/Minerals 1 each 04/20/19 10:00 04/21/19 09:59 Theragran-M PO 1 each DAILY PRAVEEN Administration Potassium Citrate/Citric Acid 10 meq 04/19/19 22:00 04/21/19 10:00 Cytra-K - PO 10 meq BID PRAVEEN Administration Risperidone 4 mg 04/19/19 23:58 04/20/19 21:27 Risperdal - PO 4 mg HS PRAVEEN Administration Solifenacin 5 mg 04/20/19 10:00 04/21/19 09:59 Vesicare - PO 5 mg DAILY PRAVEEN Administration Topiramate 400 mg 04/19/19 22:00 04/20/19 21:27 Topamax - PO 400 mg HS PRAVEEN Administration Trazodone HCl 50 mg 04/19/19 22:00 04/20/19 21:29 Desyrel - PO 50 mg HS PRAVEEN Administration Ziprasidone 60 mg 04/19/19 23:24 04/21/19 09:59 Geodon - PO 60 mg BID PRAVEEN Administration Zolpidem Tartrate 5 mg 04/19/19 22:00 Ambien - PO HS PRN INSOMNIA Home Medications Medication Instructions Recorded Alendronate Sodium [Binosto] 70 mg PO WEEKLY 04/21/15 Aspirin [ASA -] 81 mg PO DAILY 04/21/15 Calcium 500 mg PO TID 04/21/15 Clopidogrel Bisulfate [Clopidogrel] 75 mg PO HS 04/21/15 Mirtazapine [Remeron -] 30 mg PO HS 04/21/15 Multivit with Calcium,Iron,Min 1 each PO DAILY 04/21/15 [Tab A Ezra] Potassium Citrate/Citric Acid [Pot 1 each PO BID 04/21/15 Citrate-Citric Acid Packet] Pravastatin Sodium 10 mg PO HS 04/21/15 Risperidone [Risperdal] 8 mg PO HS 04/21/15 Topiramate [Topamax] 400 mg PO HS 04/21/15 Ziprasidone [Geodon -] 60 mg PO BID 04/21/15 Zolpidem Tartrate 10 mg PO HS 04/21/15 traZODone HCL [Desyrel -] 50 mg PO HS 04/21/15 Cephalexin Monohydrate [Keflex -] 500 mg PO BID 7 Days #14 capsule 04/19/19 Gabapentin [Neurontin -] 100 mg PO TID 02/01/20 Oxybutynin Chloride [Ditropan Xl] 10 mg PO DAILY 04/19/19 Albuterol Sulfate [Albuterol 2 puff PO BID 04/21/19 Sulfate Hfa] Calcium Carbonate/Vitamin D3 1 tab PO TID 04/21/19 [Calcium 500-Vit D3 200 Tablet] ASSESSMENT AND PLAN: 79 year old female [facility] resident with history of Schizophrenia, HLD , CAD, GERD, CKD 3 presents from [facility], with report of AMS and flu-like symptoms. 1. Acute Metabolic Encephalopathy secondary to Pneumonia CT head: chronic sinusitis, no acute findings, moderate atrophy. CT A/P - severe cystitis with surrounding mesenteric and pre-sacral edema, pneumonia - awaiting official radiology read. Low grade temperature resolved. Continue Ceftriaxone, discontinue Azithro as per ID. Urine legionella neg Influenza negative Urine Cx negative Collateral Hx required to determine baseline mental status. Urology consulted for radiological findings of severe cystitis. 2. Schizophrienia - appears stable, no evidence of psychosis currently. Continue Mirtazipine, Risperidone, Topiramate, Trazodone, Ziprasidone. 3. CKD 3 - Stable. Creat at baseline. 4. HLD - Continue Statin 5. CAD - Continue Aspirin/Plavix/Statin 6. Positive Blood Cx - Gram pos cocci in clusters - 1 bottle, likely contaminant. Covered with IV Vanco x 1. Afebrile, hemodynamiclly Stable. Repeat Blood Cx pending. ID following. DVT Px - Heparin SQ. Dispo - back to [facility] tomorrow.
--- NOTE | 2019-04-21 20:39 | CONSULT ---
Consult Consult Specialty:: UROLOGY Reason for Consultation:: Cystitis - History of Present Illness Chief Complaint: 79 Y/O Female patient with history of schizophrenia, HLD, CAD, GERD. history of Flu like illness. no dysuria or hematuria. O/E soft lax abd no palpable bladder. CT-Scan show thick bladder wall, bilateral renal cysts. WBC 11 BUN 38 S,Creat 1,5. she is admitted for IV cefotriaxone - Alcohol/Substance Use Hx Alcohol Use: No - Smoking History Smoking history: Former smoker Have you smoked in the past 12 months: No Aproximately how many cigarettes per day: 0 If you are a former smoker, when did you quit?: 15 YEARS AGO Home Medications - Allergies Allergies/Adverse Reactions: Allergies Allergy/AdvReac Type Severity Reaction Status Date / Time No Known Allergies Allergy Verified 04/18/19 22:56 - Home Medications Home Medications: Ambulatory Orders Alendronate Sodium [Binosto] 70 mg PO WEEKLY 04/21/15 Aspirin [ASA -] 81 mg PO DAILY 04/21/15 Calcium 500 mg PO TID 04/21/15 Clopidogrel Bisulfate [Clopidogrel] 75 mg PO HS 04/21/15 Mirtazapine [Remeron -] 30 mg PO HS 04/21/15 Multivit with Calcium,Iron,Min [Tab A Ezra] 1 each PO DAILY 04/21/15 Potassium Citrate/Citric Acid [Pot Citrate-Citric Acid Packet] 1 each PO BID 06/01 Pravastatin Sodium 10 mg PO HS 04/21/15 Risperidone [Risperdal] 8 mg PO HS 04/21/15 Topiramate [Topamax] 400 mg PO HS 04/21/15 Ziprasidone [Geodon -] 60 mg PO BID 04/21/15 Zolpidem Tartrate 10 mg PO HS 04/21/15 traZODone HCL [Desyrel -] 50 mg PO HS 04/21/15 Cephalexin Monohydrate [Keflex -] 500 mg PO BID 7 Days #14 capsule 04/19/19 Gabapentin [Neurontin -] 100 mg PO TID 04/19/19 Oxybutynin Chloride [Ditropan Xl] 10 mg PO DAILY 04/19/19 Albuterol Sulfate [Albuterol Sulfate Hfa] 2 puff PO BID 04/21/19 Calcium Carbonate/Vitamin D3 [Calcium 500-Vit D3 200 Tablet] 1 tab PO TID Physical Exam Vital Signs: Vital Signs Temperature 98.8 F 04/21/19 17:14 Pulse Rate 71 04/21/19 17:14 Respiratory Rate 18 04/21/19 17:14 Blood Pressure 89/56 L 04/21/19 17:14 O2 Sat by Pulse Oximetry (%) 98 04/21/19 09:00 Labs: CBC, BMP 04/20/19 06:44 04/20/19 06:44 Assessment/Plan Cystitis Bilateral Renal cysts Plan: continue IV ceftriaxone Will do cystoscopy and bladder biopsy after clear from cystitis
[2019-04-21] MEDS ORDERED: MIRTAZAPINE 15 MG TABLET (FP) ONE (20:40)
[2019-04-21] MEDS: MIRTAZAPINE 30 MG TABLET (FP) PO SCH (21:14)
[2019-04-21] MEDS: ATORVASTATIN CA 10 MG TABLET (FP) PO SCH (21:14)
[2019-04-21] MEDS: CLOPIDOGREL BISULFATE 75 MG TABLET (FP) PO SCH (21:16)
[2019-04-21] MEDS: risperiDONE 1 MG TABLET PO SCH (21:16)
[2019-04-21] MEDS: traZODone HCL 50 MG TABLET (FP) PO SCH (21:17)
[2019-04-21] MEDS: TOPIRAMATE 100 MG TABLET PO SCH (21:17)
[2019-04-22] MEDS: GABAPENTIN 100 MG CAPSULE PO SCH ×2 (06:20→14:15)
[2019-04-22] MEDS: CALCIUM (OYSTER SHELL) 500 MG TABLET (FP) PO SCH ×2 (06:20→14:15)
[2019-04-22] MEDS: HEPARIN NA (PORCINE) 5,000 UNITS/ML 1ML VIAL SQ SCH ×2 (06:20→14:15)
[2019-04-22 07:30] LABS: BASO % 0.3 % (0-2.0); EOS % 7.7 % (0-4.5); HEMATOCRIT 30.6 % (32.4-45.2); HEMOGLOBIN 10.2 GM/dL (10.7-15.3); LYMPH % 25.7 % (8-40); MCH 29.8 pg (25.7-33.7); MCHC 33.2 g/dl (32.0-36.0); MEAN CELL VOLUME 89.7 fl (80-96); MEAN PLT VOLUME 11.3 fl (7.5-11.1); MONO % 7.8 % (3.8-10.2); NEUT % 58.5 % (42.8-82.8); PLATELET COUNT 211 K/MM3 (134-434); RBC 3.41 M/mm3 (3.60-5.2); WHITE BLOOD COUNT 7.6 K/mm3 (4.0-10.0)
--- NOTE | 2019-04-22 07:50 | PN ---
Teaching Attending Note Name of Resident: Rajinder Oneill ATTENDING PHYSICIAN STATEMENT I saw and evaluated the patient. I reviewed the resident's note and discussed the case with the resident. I agree with the resident's findings and plan as documented. Discussing baseline mentation prior to DC. Will arrange for OP cystoscopy. No events reported to me overnight from nursing. Reviewed chart OBJECTIVE: NAD AAO Resting in bed HR wnl, +s1/2 NT ND +BS Normal tone, moves all 4 ex ASSESSMENT AND PLAN: Patient presented with toxic metabolic encephalopathy secondary to likely pneumonia. Possible cystitis but negative culture and seen by ID and uro; will need OP cystoscopy and close followup likely secondary to the underlying anatomical changes. Clinically stable and if cleared can return to halfway. Problems include: Community Acquired Pneumonia; convert abx to PO and complete course for 10 days or as per ID prior to DC NO BACTEREMIA; resident note is not accurate. This is contaminant with 1/2 bottles. Chronic sinusitis with 1.3cm nasal polyp seen on CT; OP followup with ENT recommended. No current symnptoms Chronic Anemia; Hb 10-range chronic. Monitor as OP and consider OP anemia workup. First degree AVB; noted on EKG on admission Presacral edema with findings of chronic cystitis Eosinophilia; 7.7% incidentally on CBC today. FU CBC OP and if persists can check stereotyped workup as per guidelines
[2019-04-22 08:15] LABS: ALBUMIN 2.4 g/dl (3.4-5.0); BILIRUBIN,TOTAL 0.4 mg/dL (0.2-1); BLOOD UREA NITROGEN 17.5 mg/dL (7-18); CALCIUM 8.7 mg/dL (8.5-10.1); CREATININE 1.2 mg/dL (0.55-1.3); POTASSIUM 4.1 mmol/L (3.5-5.1); TOT PROT 5.8 g/dl (6.4-8.2)
--- NOTE | 2019-04-22 08:51 | PN ---
Progress Note (short form) - Note Progress Note: UROLOGY NOTE Cystitis on IV BX doing well WBC 7.6 BUN 17 S.Creat 1.2 Plan: bladder scan, if PVR >200 ml then saldana catheter insertion
[2019-04-22] MEDS ORDERED: PT OWN MED DRAWER 7, Y5N ONE (11:30)
[2019-04-22] MEDS ORDERED: cefTRIAXone SODIUM 1 GM VIAL ONE (11:59)
[2019-04-22] MEDS ORDERED: DEXTROSE 5%-WATER - 50 ML IVPB ONE (11:59)
[2019-04-22] MEDS: ASPIRIN 81 MG CHEWABLE TABLETS PO SCH (12:04)
[2019-04-22] MEDS: CEFTRIAXONE 1 GM in DEXTROSE 5%-WATER - 50 ML IVPB SCH (12:04)
[2019-04-22] MEDS: SOLIFENACIN SUCCINATE 5 MG TAB PO SCH (12:04)
[2019-04-22] MEDS: MULTIVITAMINS THER W-MINERALS COMBO TABLET (FP) PO SCH (12:04)
[2019-04-22] MEDS: ZIPRASIDONE 20 MG CAPSULE PO SCH (12:05)
--- NOTE | 2019-04-22 13:17 | PN ---
Progress Note, Physician - Current Medication List Current Medications: Active Medications Aspirin (Asa -) 81 mg PO DAILY [facility] Last Admin: 04/22/19 12:04 Dose: 81 mg Atorvastatin Calcium (Lipitor -) 10 mg PO HS [facility] Last Admin: 04/21/19 21:14 Dose: 10 mg Calcium Carbonate (Os-Andres 500mg -) 500 mg PO TID [facility] Last Admin: 04/22/19 06:20 Dose: 500 mg Clopidogrel Bisulfate (Plavix -) 75 mg PO HS [facility] Last Admin: 04/21/19 21:16 Dose: 75 mg Gabapentin (Neurontin -) 100 mg PO TID [facility] Last Admin: 04/22/19 06:20 Dose: 100 mg Heparin Sodium (Porcine) (Heparin -) 5,000 unit SQ TID [facility] Last Admin: 04/22/19 06:20 Dose: 5,000 unit Ceftriaxone Sodium 1 gm/ (Dextrose) 50 mls @ 100 mls/hr IVPB DAILY [facility]; Protocol Last Admin: 04/22/19 12:04 Dose: 100 mls/hr Mirtazapine (Remeron -) 30 mg PO [facility] Last Admin: 04/21/19 21:14 Dose: 30 mg Multivitamins/Minerals (Theragran-M) 1 each PO DAILY [facility] Last Admin: 04/22/19 12:04 Dose: 1 each Potassium Citrate/Citric Acid (Cytra-K -) 10 meq PO BID [facility] Last Admin: 04/21/19 21:13 Dose: 10 meq Risperidone (Risperdal -) 4 mg PO [facility] Last Admin: 04/21/19 21:16 Dose: 4 mg Solifenacin (Vesicare -) 5 mg PO DAILY [facility] Last Admin: 04/22/19 12:04 Dose: 5 mg Topiramate (Topamax -) 400 mg PO HS [facility] Last Admin: 04/21/19 21:17 Dose: 400 mg Trazodone HCl (Desyrel -) 50 mg PO [facility] Last Admin: 04/21/19 21:17 Dose: 50 mg Ziprasidone (Geodon -) 60 mg PO BID [facility] Last Admin: 04/22/19 12:05 Dose: 60 mg Zolpidem Tartrate (Ambien -) 5 mg PO HS PRN PRN Reason: INSOMNIA - Objective Vital Signs: Vital Signs Temperature 98.0 F 04/22/19 11:57 Pulse Rate 77 04/22/19 13:15 Respiratory Rate 18 04/22/19 13:15 Blood Pressure 96/62 04/22/19 13:15 O2 Sat by Pulse Oximetry (%) 98 04/21/19 21:00 Labs: CBC, BMP 04/22/19 06:40 04/22/19 06:40 INR, PTT INR 1.07 (0.83-1.09) 04/18/19 23:30
[2019-04-22] MEDS: POTASSIUM CITRATE/CITRIC ACID 2 MEQ/ML ML PO SCH (14:15)
[2019-04-22 14:28] VITALS: PULSE 74
--- NOTE | 2019-04-22 14:56 | DS ---
Physical Exam: SUBJECTIVE: Patient seen and examined at bedside. Denies any complaints. OBJECTIVE: Vital Signs Period Temp Pulse Resp BP Sys/Wallace Pulse Ox Last 24 Hr 98.0 F-98.9 F 66-79 18-20 88-116/51-75 98 PHYSICAL EXAM GENERAL: The patient is aoX3. LUNGS: Breath sounds equal, clear to auscultation bilaterally, no wheezes, no crackles, no accessory muscle use. HEART: Regular rate and rhythm, S1, S2 without murmur, rub or gallop. ABDOMEN: Soft, nontender, nondistended, normoactive bowel sounds, no guarding, no rebound. EXTREMITIES: 2+ pulses, warm, well-perfused, no edema. NEUROLOGICAL: Cranial nerves II through XII grossly intact. Normal speech, gait not observed. PSYCH: Normal mood, normal affect. LABS Laboratory Results - last 24 hr 04/22/19 04/22/19 06:40 06:40 WBC 7.6 RBC 3.41 L Hgb 10.2 L Hct 30.6 L MCV 89.7 MCH 29.8 MCHC 33.2 RDW 14.0 Plt Count 211 MPV 11.3 H Absolute Neuts (auto) 4.4 Neutrophils % 58.5 D Lymphocytes % 25.7 D Monocytes % 7.8 Eosinophils % 7.7 H D Basophils % 0.3 Nucleated RBC % 0 Sodium 144 Potassium 4.1 Chloride 118 H Carbon Dioxide 21 Anion Gap 5 L BUN 17.5 Creatinine 1.2 Est GFR (CKD-EPI)AfAm 50.13 Est GFR (CKD-EPI)NonAf 43.25 Random Glucose 87 Calcium 8.7 Total Bilirubin 0.4 AST 15 ALT 17 Alkaline Phosphatase 48 Total Protein 5.8 L Albumin 2.4 L HOSPITAL COURSE: Date of Admission:04/19/19 Images: CT head: chronic sinusitis, no acute findings, moderate atrophy. CT A/P - severe cystitis with surrounding mesenteric and pre-sacral edema, pneumonia - awaiting official radiology read. Patient was admitted for management of acute metabolic encephalopathy 2/2 aspiration pneumonia. She has hx of schizoaffective disorder, severe dementia but likely altered at baseline given severe dementia and psych hx. Placed on ceftriaxone for 2 days and pt became afebrile and deemed stable for d/c. Spoke with pt regarding necessity to follow up with uro for cysto as o/p for the severe cystitis. Pt told to lin melo, and sent home on augmentin 875 BID X 5 days for resolution of UTI. She was sent back to [facility]. On CT here it showed chronic sinusitis with 1.3cm nasal polyp; OP followup with ENT recommended. - Chronic Anemia; Hb 10-range chronic. Monitor as OP and consider OP anemia workup. First degree AVB; noted on EKG on admission asymptomatic likely chronic. Eosinophilia; 7.7% incidentally on CBC today. FU CBC OP and if persists can check stereotyped workup as per guidelines Date of Discharge: 04/22/19 Minutes to complete discharge: 35 Discharge Summary Problems reviewed: Yes Reason For Visit: UTI/ALTERED MENTAL STATUS/PNEUMONIA Condition: Stable - Instructions Diet, Activity, Other Instructions: You were admitted for confusion and pneumonia. You were seen by our infectious disease doctor and were treated with antibiotics. On imaging we found a bladder infection that is likely not new, and we had a bladder doctor see you (Dr. fagan) who would like you to follow up with him in 1 week after leaving here to have that assessed. You no longer have pneumonia and are stable enough for discharge with close follow up with the physicians listed below. New medication to continue at home: Augmentin 875 mg twice a day by mouth for 5 days after discharge. This is to treat your pneumonia. Medication we discontinued while here: Teo - Please follow up with your psychiatrist in 3-5 days after this so you can optimize your medical management. - Please follow up with an heart coordinator because we found a polyp with 1.3cm nasal polyp seen on imaging here. - You should follow up with your primary care doctor to have your blood levels checked for anemia in 3-5 days. - You should continue all your other home medications as prescribed. - You should return to the emergency room if you are confused, short of breath, have chest pain, weakness, or bowel/bladder complaints. Referrals: Charanjit Willingham [Primary Care Provider] - 1 Week (3-5 days) Nadira Oneill MD [Staff Physician] - 1 Week Samir Simmons MD [Staff Physician] - 1 Week Disposition: [facility] - Home Medications Comprehensive Discharge Medication List: Ambulatory Orders Aspirin [ASA -] 81 mg PO DAILY 04/21/15 Clopidogrel Bisulfate [Clopidogrel] 75 mg PO HS 04/21/15 Mirtazapine [Remeron -] 30 mg PO HS 04/21/15 Multivit with Calcium,Iron,Min [Tab A Ezra] 1 each PO DAILY 04/21/15 Potassium Citrate/Citric Acid [Pot Citrate-Citric Acid Packet] 1 each PO BID 06/01 Pravastatin Sodium 10 mg PO HS 04/21/15 Risperidone [Risperdal] 8 mg PO HS 04/21/15 Topiramate [Topamax] 400 mg PO HS 04/21/15 Ziprasidone [Geodon -] 60 mg PO BID 04/21/15 traZODone HCL [Desyrel -] 50 mg PO HS 04/21/15 Gabapentin [Neurontin -] 100 mg PO TID 04/19/19 Oxybutynin Chloride [Ditropan Xl] 10 mg PO DAILY 04/19/19 Albuterol Sulfate [Albuterol Sulfate Hfa] 2 puff PO BID 04/21/19 Calcium Carbonate/Vitamin D3 [Calcium 500-Vit D3 200 Tablet] 1 tab PO TID Amoxicillin/Potassium Clav [Augmentin 875-125 Tablet] 875 mg PO BID 5 Days #10 tablet 04/22/19 This patient is new to me today: Yes Date on this admission: 04/22/19 Emergency Visit: No Critical Care patient: No - Discharge Referral Referred to [facility] No ATTENDING PHYSICIAN STATEMENT I saw and evaluated the patient. I reviewed the resident's note and discussed the case with the resident. I agree with the resident's findings and plan as documented. SUBJECTIVE: OBJECTIVE: ASSESSMENT AND PLAN:
[2019-04-22 17:13] VITALS: BP 100/55; TEMP 98.6
== END 2019-04-22 20:00 | DRG 177 ==
LOC: JER 21:53 → JERBED 04-19 07:24 → J8W 04-19 22:08
PROVIDERS: ATTEND Internal Medicine
DX: J69.0 Pneumonitis due to inhalation of food and vomit (principal); G93.41 Metabolic encephalopathy; N39.0 Urinary tract infection, site not specified; N18.3 Chronic kidney disease, stage 3 (moderate); E78.5 Hyperlipidemia, unspecified; I25.10 Atherosclerotic heart disease of native coronary artery without angina pectoris; F20.9 Schizophrenia, unspecified; F03.90 Unspecified dementia, unspecified severity, without behavioral disturbance, psychotic disturbance, mood disturbance, and anxiety; R41.82 Altered mental status, unspecified; J32.9 Chronic sinusitis, unspecified; I44.0 Atrioventricular block, first degree; K21.9 Gastro-esophageal reflux disease without esophagitis; D72.829 Elevated white blood cell count, unspecified
CPT/HCPCS: 36415; 70450-TC; 71045-TC-FY; 74176-TC; 80048; 80053; 81003; 82607; 82803; 83605; 84439; 84443; 84484; 85025; 85027; 85610; 85730; 86593; 87040; 87086; 87186; 87804; 87899; 93005; 93010; 97116-GP; 97161-GP; 99285-25; J1644; J2794; J7030